=== PATIENT | female | born 1940 | race Two or more races ===

== ENCOUNTER 2018-01-08 10:23 | Inpatient (IN) | payer MEDICARE, OTHER ==
[~2018-01-08] VITALS: Ht 154.9 cm; Wt 59.0 kg
[2018-01-08 10:42] VITALS: BP 143/66
--- NOTE | 2018-01-08 10:42 | Emergency Room Report ---
History of Present Illness General Chief Complaint: Syncope Source: Patient, Family Member, EMS Present Illness HPI Patient presents after syncopal episode. Paramedics found that she was hypotensive also. They gave her a bolus of 250 of normal saline with improvement in her blood pressure. The patient has a history of hypertension and took medications this morning. She also has dementia. The daughter was take her to social security office and was out in the hot sun waiting. The patient passed out's did not hurt herself when she passed out. She then vomited. No coffee grounds. Accu-Chek was normal in the field and an EKG did not show STEMI. Patient denies pain. She has dementia and therefore some of her recent memory is poor. She is being evaluated for possible Parkinson's. Started Sinemet in June and increased. Allergies: Coded Allergies: No Known Allergies (Unverified , 01/08/18) Patient History Limited by: medical condition Past Medical History: see triage record Social History: Denies: smoking, alcohol use, drug use Social History Narrative lives with daughter Reviewed Nursing Documentation: PMH: Agreed; PSxH: Agreed Nursing Documentation-PMH Past Medical History: No History, Except For Hx Hypertension: Yes Hx Diabetes: Yes Hx Neurological Problems: Yes - Dementia, Alzheimer's disease Review of Systems All Other Systems: limited Physical Exam Vital Signs Date Time Temp Pulse Resp B/P (MAP) Pulse Ox O2 Delivery O2 Flow Rate FiO2 01/08/18 10:17 97.5 75 13 143/66 94 Room Air 97.5 Sp02 EP Interpretation: reviewed, normal General Appearance: no apparent distress, thin, Chronically Ill Head: normocephalic Eyes: bilateral eye normal inspection, bilateral eye PERRL ENT: moist mucus membranes, other - tremor involving jaw, plates upper Neck: full range of motion, no meningismus Respiratory: lungs clear, normal breath sounds Cardiovascular #1: regular rate, rhythm Cardiovascular #2: 2+ radial (R) Gastrointestinal: normal inspection, normal bowel sounds, non tender, no mass, non-distended Musculoskeletal: back normal, gait/station normal, normal range of motion Neurologic: alert, motor strength/tone normal - cogwheeling, hyperreflexia, no Babinski, oriented - X1 Psychiatric: other - flat affect Skin: normal inspection, warm/dry Medical Decision Making Diagnostic Impression: Primary Impression: Syncope Qualified Codes: R55 - Syncope and collapse Additional Impressions: Sepsis Qualified Codes: A41.9 - Sepsis, unspecified organism Parkinson's disease UTI (urinary tract infection) Qualified Codes: N39.0 - Urinary tract infection, site not specified ER Course Patient presents with syncope. DDX: AMI, arrhythmia, occult infection, dehydration , sepsis, autonomic instability, medication reaction amongst others. Evaluation with EKG, CXR and labs. Treatment with IV hydration. Consider ABx if labs indicate. CT of head not indicated based on exam and history. EKG without injury. CXR no infiltrates. Labs with normal WBC, elevated lactate and pyuria. Improved BP with hydration. Antibiotics started to cover UTI. Admit tele Dr. Ye. Laboratory Tests Test 01/08/18 10:33 01/08/18 12:14 White Blood Count 11.0 K/UL (4.8-10.8) H Red Blood Count 4.48 M/UL (4.20-5.40) Hemoglobin 13.7 G/DL (12.0-16.0) Hematocrit 41.1 % (37.0-47.0) Mean Corpuscular Volume 92 FL (80-99) Mean Corpuscular Hemoglobin 30.6 PG (27.0-31.0) Mean Corpuscular Hemoglobin Concent 33.3 G/DL (32.0-36.0) Red Cell Distribution Width 12.7 % (11.6-14.8) Platelet Count 160 K/UL (150-450) Mean Platelet Volume 12.5 FL (6.5-10.1) H Neutrophils (%) (Auto) 78.9 % (45.0-75.0) H Lymphocytes (%) (Auto) 12.5 % (20.0-45.0) L Monocytes (%) (Auto) 7.4 % (1.0-10.0) Eosinophils (%) (Auto) 0.8 % (0.0-3.0) Basophils (%) (Auto) 0.5 % (0.0-2.0) Prothrombin Time 10.2 SEC (9.30-11.50) Prothrombin Time INR 1.0 (0.9-1.1) PTT 23 SEC (23-33) Urine Color Pale yellow Urine Appearance Clear Urine pH 8 (4.5-8.0) Urine Specific [place] 1.015 (1.005-1.035) Urine Protein Negative (NEGATIVE) Urine Glucose (UA) Negative (NEGATIVE) Urine Ketones Negative (NEGATIVE) Urine Occult Blood Negative (NEGATIVE) Urine Nitrite Negative (NEGATIVE) Urine Bilirubin Negative (NEGATIVE) Urine Urobilinogen Normal MG/DL (0.0-1.0) Urine Leukocyte Esterase 2+ (NEGATIVE) H Urine RBC 0-2 /HPF (0 - 2) Urine WBC 5-10 /HPF (0 - 2) H Urine Squamous Epithelial Cells Few /LPF (NONE/OCC) Urine Bacteria Few /HPF (NONE) Sodium Level 141 MMOL/L (136-145) Potassium Level 3.8 MMOL/L (3.5-5.1) Chloride Level 104 MMOL/L (98-107) Carbon Dioxide Level 28 MMOL/L (21-32) Anion Gap 9 mmol/L (5-15) Blood Urea Nitrogen 23 mg/dL (7-18) H Creatinine 1.0 MG/DL (0.55-1.30) Estimate Glomerular Filtration Rate mL/min (>60) Glucose Level 109 MG/DL (74-106) H Lactic Acid Level 3.20 mmol/L (0.4-2.0) H 2.10 mmol/L (0.66-2.22) Calcium Level 9.3 MG/DL (8.5-10.1) Magnesium Level 2.2 MG/DL (1.8-2.4) Total Bilirubin 0.7 MG/DL (0.2-1.0) Aspartate Amino Transferase (AST) 22 U/L (15-37) Alanine Aminotransferase (ALT) 13 U/L (12-78) Alkaline Phosphatase 93 U/L (46-116) Total Creatine Kinase 62 U/L (26-308) Troponin I 0.000 ng/mL (0.000-0.056) Pro-B-Type Natriuretic Peptide 219 pg/mL (0-125) H Total Protein 7.1 G/DL (6.4-8.2) Albumin 3.5 G/DL (3.4-5.0) Globulin 3.6 g/dL Albumin/Globulin Ratio 1.0 (1.0-2.7) Thyroid Stimulating Hormone (TSH) 3.711 uiU/mL (0.358-3.740) EKG Diagnostic Results Rate: normal Rhythm: NSR ST Segments: no acute changes Rhythm Strip Diag. Results EP Interpretation: yes Rhythm: NSR, no PVC's, no ectopy Chest X-Ray Diagnostic Results Chest X-Ray Diagnostic Results : Chest X-Ray Ordered: Yes # of Views/Limited/Complete: 1 View Indication: Other EP Interpretation: Yes Interpretation: no consolidation, no effusion, no pneumothorax Impression: No acute disease Electronically Signed by: Electronically signed by Adiel Soliz MD Last Vital Signs Date Time Temp Pulse Resp B/P (MAP) Pulse Ox O2 Delivery O2 Flow Rate FiO2 01/08/18 21:00 Room Air 01/08/18 20:00 72 01/08/18 20:00 98.0 22 122/72 (89) 97 98.0 01/08/18 14:38 2.0 Status: improved Disposition: ADMITTED INPATIENT Condition: Serious Adiel Soliz M.D. Jan 08, 2018 10:42
[2018-01-08 10:54] LABS: BASOPHILS % (AUTO) 0.5 % (0.0-2.0); EOSINOPHILS % (AUTO) 0.8 % (0.0-3.0); HEMATOCRIT 41.1 % (37.0-47.0); HEMOGLOBIN 13.7 G/DL (12.0-16.0); LYMPHOCYTES % (AUTO) 12.5 % (20.0-45.0); MEAN CORPUSCULAR VOLUME 92 FL (80-99); MONOCYTES % (AUTO) 7.4 % (1.0-10.0); NEUTROPHILS % (AUTO) 78.9 % (45.0-75.0); PLATELET COUNT 160 K/UL (150-450); RED BLOOD COUNT 4.48 M/UL (4.20-5.40); RED CELL DISTRIBUTION WIDTH 12.7 % (11.6-14.8)
[2018-01-08 11:01] LABS: ANION GAP 9 mmol/L (5-15); BLOOD UREA NITROGEN 23 mg/dL (7-18); CALCIUM 9.3 MG/DL (8.5-10.1); CARBON DIOXIDE 28 MMOL/L (21-32); CHLORIDE 104 MMOL/L (98-107); POTASSIUM 3.8 MMOL/L (3.5-5.1); SODIUM 141 MMOL/L (136-145)
[2018-01-08 11:05] LABS: APPEARANCE,URINE CLEAR; BILIRUBIN, URINE NEGATIVE (NEGATIVE); COLOR,URINE PALE YELLOW; GLUCOSE, URINE (UA) NEGATIVE (NEGATIVE); KETONES,URINE NEGATIVE (NEGATIVE); LEUKOCYTE ESTERASE ,URINE 2+ (NEGATIVE); NITRITE,URINE NEGATIVE (NEGATIVE); PH,URINE 8 (4.5-8.0); PROTEIN,URINE NEGATIVE (NEGATIVE); UROBILINOGEN,URINE NORMAL MG/DL (0.0-1.0)
[2018-01-08 11:17] LABS: ALANINE AMINOTRANSFERASE 13 U/L (12-78); ALBUMIN 3.5 G/DL (3.4-5.0); ALKALINE PHOSPHATASE 93 U/L (46-116); ASPARTATE AMINO TRANSFERASE 22 U/L (15-37); BILIRUBIN,TOTAL 0.7 MG/DL (0.2-1.0); CREATINE KINASE 62 U/L (26-308)
--- NOTE | 2018-01-08 11:18 | Diagnostic Imaging Report ---
Indication: Shortness of breath. Technique: One view of the chest Comparison: none Findings: Lungs and pleural spaces are clear. Heart size is normal Impression: No acute process
[2018-01-08] MEDS ORDERED: HYDROCHLOROTHIA25 MG ORAL (11:29)
[2018-01-08] MEDS ORDERED: ATORVASTATIN CA40 MG ORAL (11:29)
[2018-01-08] MEDS ORDERED: SINEMET 25-1001 EAC1 ORAL (11:29)
[2018-01-08] MEDS ORDERED: JANUVIA25 MG ORAL (11:29)
[2018-01-08] MEDS ORDERED: VITAMIN D400 INTLU ORAL (11:29)
[2018-01-08] MEDS ORDERED: ASPIR 8181 MG ORAL (11:29)
[2018-01-08] MEDS ORDERED: DONEPEZIL HCL10 M2 ORAL (11:30)
[2018-01-08 11:56] VITALS: BP 131/60
[2018-01-08] MEDS ORDERED: Cefepime HCl 1 GM in D5W 55 ML IVPB ONE (12:00)
[2018-01-08] MEDS ORDERED: Nitroglycerin Subl 0.4mg tab SL PRN (13:00)
[2018-01-08] MEDS ORDERED: Miralax 17gm pkt ORAL PRN (13:00)
[2018-01-08] MEDS ORDERED: LORazepam Inj 2mg/ml 1ml IV PRN (13:00)
[2018-01-08] MEDS ORDERED: Albuterol/Ipratropium 3ml neb HHN PRN (13:00)
[2018-01-08] MEDS ORDERED: Morphine Sulfate 2mg/ml Inj IVP PRN (13:00)
[2018-01-08] MEDS ORDERED: Mylanta II UD 30ml ORAL PRN (13:00)
[2018-01-08 13:23] VITALS: BP 128/74
--- NOTE | 2018-01-08 14:16 | Consultation ---
History of Present Illness General Date patient seen: Jan 08, 2018 Chief Complaint: Syncope Present Illness HPI 77 y/o F with hx of HTN, Dementia, possible Parkinson's presents to ED on 01/08 with a syncopal episode. EMS found patient to be hypotensive which improved with 250 cc saline bolus. Daughter referred patient was waiting outside in the sun for a social security appointment. After passing out she vomited. Accucheck in the field normal, EKG with no STEMI. Afebrile mild leukocytosis Denies abd pain, dysuria, urinary frequency, urgency, f/c. Allergies: Coded Allergies: No Known Allergies (Unverified , 01/08/18) Medication History Scheduled Aspirin* (Aspir 81*), 81 MG ORAL DAILY, (Reported) Atorvastatin Calcium* (Atorvastatin Calcium*), 80 MG ORAL BEDTIME, (Reported) Carbidopa/Levodopa 25-100 Mg* (Sinemet 25-100 Mg Tablet*), 1 TAB ORAL THREE TIMES A DAY, (Reported) Donepezil Hcl* (Donepezil Hcl*), 10 MG ORAL DAILY, (Reported) Hydrochlorothiazide* (Hydrochlorothiazide*), 25 MG ORAL DAILY, (Reported) Sitagliptin* (Januvia*), 100 MG ORAL DAILY, (Reported) Vitamin D (Vitamin D3), 2,000 UNITS ORAL DAILY, (Reported) Patient History Healthcare decision maker Resuscitation status Advanced Directive on File Patient History Narrative Pmhx: as above Shx: Denies: smoking, alcohol use, drug use Fhx: non contributory Review of Systems All Other Systems: negative except mentioned in HPI Physical Exam Physical Exam Narrative General Appearance: thin, Chronically Ill Eyes: bilateral eye normal inspection, bilateral eye PERRL ENT: moist mucus membranes, other - tremor involving jaw, plates upper Neck: full range of motion, no meningismus Neurologic: alert, no Babinski, oriented - X1 Psychiatric: other - flat affect Last 24 Hour Vital Signs Date Time Temp Pulse Resp B/P (MAP) Pulse Ox O2 Delivery O2 Flow Rate FiO2 01/08/18 14:03 97.8 84 16 128/74 100 Room Air 97.8 01/08/18 13:23 97.8 84 16 128/74 100 Room Air 97.8 01/08/18 11:56 97.8 74 14 131/60 100 Room Air 97.8 01/08/18 10:42 97.5 73 13 143/66 94 Room Air 97.5 01/08/18 10:17 97.5 75 13 143/66 94 Room Air 97.5 Laboratory Tests Test 01/08/18 10:33 01/08/18 12:14 White Blood Count 11.0 K/UL (4.8-10.8) H Red Blood Count 4.48 M/UL (4.20-5.40) Hemoglobin 13.7 G/DL (12.0-16.0) Hematocrit 41.1 % (37.0-47.0) Mean Corpuscular Volume 92 FL (80-99) Mean Corpuscular Hemoglobin 30.6 PG (27.0-31.0) Mean Corpuscular Hemoglobin Concent 33.3 G/DL (32.0-36.0) Red Cell Distribution Width 12.7 % (11.6-14.8) Platelet Count 160 K/UL (150-450) Mean Platelet Volume 12.5 FL (6.5-10.1) H Neutrophils (%) (Auto) 78.9 % (45.0-75.0) H Lymphocytes (%) (Auto) 12.5 % (20.0-45.0) L Monocytes (%) (Auto) 7.4 % (1.0-10.0) Eosinophils (%) (Auto) 0.8 % (0.0-3.0) Basophils (%) (Auto) 0.5 % (0.0-2.0) Prothrombin Time 10.2 SEC (9.30-11.50) Prothromb Time International Ratio 1.0 (0.9-1.1) Activated Partial Thromboplast Time 23 SEC (23-33) Urine Color Pale yellow Urine Appearance Clear Urine pH 8 (4.5-8.0) Urine Specific [place] 1.015 (1.005-1.035) Urine Protein Negative (NEGATIVE) Urine Glucose (UA) Negative (NEGATIVE) Urine Ketones Negative (NEGATIVE) Urine Occult Blood Negative (NEGATIVE) Urine Nitrite Negative (NEGATIVE) Urine Bilirubin Negative (NEGATIVE) Urine Urobilinogen Normal MG/DL (0.0-1.0) Urine Leukocyte Esterase 2+ (NEGATIVE) H Urine RBC 0-2 /HPF (0 - 2) Urine WBC 5-10 /HPF (0 - 2) H Urine Squamous Epithelial Cells Few /LPF (NONE/OCC) Urine Bacteria Few /HPF (NONE) Sodium Level 141 MMOL/L (136-145) Potassium Level 3.8 MMOL/L (3.5-5.1) Chloride Level 104 MMOL/L (98-107) Carbon Dioxide Level 28 MMOL/L (21-32) Anion Gap 9 mmol/L (5-15) Blood Urea Nitrogen 23 mg/dL (7-18) H Creatinine 1.0 MG/DL (0.55-1.30) Estimat Glomerular Filtration Rate mL/min (>60) Glucose Level 109 MG/DL (74-106) H Lactic Acid Level 3.20 mmol/L (0.4-2.0) H 2.10 mmol/L (0.66-2.22) Calcium Level 9.3 MG/DL (8.5-10.1) Magnesium Level 2.2 MG/DL (1.8-2.4) Total Bilirubin 0.7 MG/DL (0.2-1.0) Aspartate Amino Transf (AST/SGOT) 22 U/L (15-37) Alanine Aminotransferase (ALT/SGPT) 13 U/L (12-78) Alkaline Phosphatase 93 U/L (46-116) Total Creatine Kinase 62 U/L (26-308) Troponin I 0.000 ng/mL (0.000-0.056) Pro-B-Type Natriuretic Peptide 219 pg/mL (0-125) H Total Protein 7.1 G/DL (6.4-8.2) Albumin 3.5 G/DL (3.4-5.0) Globulin 3.6 g/dL Albumin/Globulin Ratio 1.0 (1.0-2.7) Thyroid Stimulating Hormone (TSH) 3.711 uiU/mL (0.358-3.740) Microbiology Date/Time Source Procedure Growth Status 01/08/18 11:17 Rectum Received Height (Feet): 5 Height (Inches): 1.00 Weight (Pounds): 130 Medications Current Medications Medications (Trade) Dose Ordered Sig/Jose Alberto Route PRN Reason Start Time Stop Time Status Last Admin Dose Admin Acetaminophen (Tylenol) 650 mg Q4H PRN ORAL fever 01/08/18 13:00 02/07/18 12:59 Al Hydroxide/Mg Hydroxide (Mylanta II) 30 ml Q6H PRN ORAL dyspepsia 01/08/18 13:00 02/07/18 12:59 Albuterol/ Ipratropium (Albuterol/ Ipratropium) 3 ml Q4H PRN HHN Shortness of Breath 01/08/18 13:00 01/13/18 12:59 Atorvastatin Calcium (Lipitor) 80 mg BEDTIME ORAL 01/08/18 21:00 02/07/18 20:59 Carbidopa/Levodopa (Sinemet 25/100) 1 tab THREE TIMES A DAY ORAL 01/08/18 13:00 02/07/18 12:59 Clonidine HCl (Catapres Tab) 0.1 mg Q4H PRN ORAL For High Blood Pressure 01/08/18 13:00 02/07/18 12:59 Dextrose (Dextrose 50%) 25 ml STAT PRN IV Hypoglycemia 01/08/18 13:00 02/07/18 12:59 Dextrose (Dextrose 50%) 50 ml STAT PRN IV Hypoglycemia 01/08/18 13:00 02/07/18 12:59 Donepezil HCl (Aricept) 10 mg DAILY ORAL 01/09/18 09:00 02/08/18 08:59 Heparin Sodium (Porcine) (Heparin 5000 units/ml) 5,000 units EVERY 12 HOURS SUBQ 01/08/18 21:00 02/07/18 20:59 Insulin Aspart (NovoLOG) BEFORE MEALS AND HS SUBQ 01/08/18 16:30 02/07/18 16:29 Levofloxacin 50 ml @ 50 mls/hr Q24HRS IVPB 01/09/18 13:00 01/16/18 12:59 Levofloxacin 100 ml @ 100 mls/hr ONCE ONCE IVPB 01/08/18 13:00 01/08/18 13:59 UNV Lorazepam (Ativan 2mg/ml 1ml) 0.5 mg Q4H PRN IV For Anxiety 01/08/18 13:00 01/15/18 12:59 Morphine Sulfate (Morphine Sulfate) 1 mg Q4H PRN IVP For Pain 7-10 01/08/18 13:00 01/15/18 12:59 Nitroglycerin (Ntg) 0.4 mg Q5M X 3 DOSES PRN SL Prn Chest Pain 01/08/18 13:00 02/07/18 12:59 Ondansetron HCl (Zofran) 4 mg Q6H PRN IVP Nausea & Vomiting 01/08/18 13:00 02/07/18 12:59 Polyethylene Glycol (Miralax) 17 gm HSPRN PRN ORAL Constipation 01/08/18 13:00 02/07/18 12:59 Sitagliptin Phosphate (Januvia) 50 mg DAILY ORAL 01/09/18 09:00 02/08/18 08:59 Sodium Chloride 1,000 ml @ 300 mls/hr Q3H20M IV 01/08/18 10:45 02/07/18 10:44 01/08/18 10:50 Temazepam (Restoril) 15 mg HSPRN PRN ORAL Insomnia 01/08/18 21:00 01/15/18 20:59 Assessment/Plan Assessment/Plan Abx: Levaquin 01/08- Cefepime x1 01/08 Assessment: Syncopal episode- likely orthostatic hypotension from dehydration (sun exposure ) + antihypertensive and parkinsonian meds -CXR: no acute process Afebrile Mild leukocytosis, likely reactive and due to dehydration Mild pyuria- nO UTI symptoms u/a wbc 5-10, nit neg, leuk +2; ucx p HTN Dementia Probable Parkinson's Plan: -D/c Levaquin and monitor off abx -ok to discharge tomorrow from ID stand point if stable. -f/u cx -Monitor CBC/CMP, temperatures Thank you for this consultation. Will continue to follow along with you. Discussed with RN and daughter at bedside. Elly Willard M.D. Jan 08, 2018 14:16
[2018-01-08] MEDS: Levodopa/Carbidopa 25/100 tab ORAL SCH ×2 (15:20→17:30)
[2018-01-08 16:00] VITALS: BP 139/72
[2018-01-08] MEDS: NovoLOG Insulin Flexpen SUBQ SCH ×2 (17:30→21:00)
[2018-01-08 20:00] VITALS: BP 122/72
[2018-01-08] MEDS: Atorvastatin 80mg tab ORAL SCH (21:39)
[2018-01-08] MEDS: Heparin 5000 units/ml inj SUBQ SCH (21:41)
--- NOTE | 2018-01-08 21:45 | History and Physical Report ---
DATE OF ADMISSION: 01/08/2018 TIME: 4 p.m. ADMITTING PHYSICIAN: Riky Ye D.O. CONSULTANTS: 1. Mona Cook M.D. 2. Lowell Hope M.D. 3. Chano Encinas M.D. 4. Irvin Trent M.D. CHIEF COMPLAINT: Syncope, shortness of breath, and sepsis. BRIEF HISTORY: This is an 87-year-old female, who lives at home, lying in social security after a while became very dizzy and had a syncopal episode. She did not become incontinent . The patient was slightly short of breath, but no chest pain at the time. The patient was brought to [facility] and diagnosed with the above. Currently, calm in bed. No complaints otherwise being admitted. At this time, in general, lethargic in bed, not talking much. PAST MEDICAL HISTORY: Diabetes. PAST SURGICAL HISTORY: Gallbladder. MEDICATIONS: Include levofloxacin, Aricept, Januvia, Lipitor, heparin, Restoril, NovoLog, Sinemet, Tylenol, MiraLAX, Zofran, and nitroglycerin. ALLERGIES: Denies. SOCIAL HISTORY: No smoking. No alcohol. No intravenous drug abuse. FAMILY HISTORY: Noncontributory. REVIEW OF SYSTEMS: Unavailable. PHYSICAL EXAMINATION: GENERAL: Calm in bed, oriented x2, in no acute distress. VITAL SIGNS: Temperature 97, pulse 84, respirations 16, and blood pressure 120/74. CARDIOVASCULAR: No murmur. LUNGS: Distant and clear. ABDOMEN: Bowel sounds positive. Soft, nontender, and nondistended. EXTREMITIES: Show no cyanosis, clubbing, or edema. NEUROLOGIC: The patient moves all extremities. Slightly weak. LABORATORY AND DIAGNOSTIC DATA: White count 11, otherwise CBC is normal. BMP shows BUN 23 and glucose 109. BNP is 219. Troponin 0.00. Otherwise, BMP is normal. INR is 1.0. PTT is 22. Urinalysis show 2+ leukocyte esterase. Otherwise, normal. ASSESSMENT: 1. Syncope. 2. Shortness of breath. 3. Urinary tract infection. 4. Sepsis. 5. Diabetes. PLAN: 1. Antibiotics per Infectious Disease. 2. Blood sugar control. 3. Dietary followup. 4. IV fluids. 5. Troponin q.8 h. x3. 6. Cardiology and Neurology evaluation. 7. OT, PT, and Dietary evaluation. 8. CBC and BMP in the morning. Riky Ye D.O. DR: SUMIT JOB#: [id number] CC: IRINA
[2018-01-09] VITALS: BP 126/70
[2018-01-09 04:00] VITALS: BP 127/65
[2018-01-09] MEDS: NovoLOG Insulin Flexpen SUBQ SCH ×4 (06:30→20:47)
[2018-01-09 07:36] LABS: BASOPHILS % (AUTO) 0.5 % (0.0-2.0); EOSINOPHILS % (AUTO) 2.9 % (0.0-3.0); HEMATOCRIT 33.9 % (37.0-47.0); HEMOGLOBIN 11.8 G/DL (12.0-16.0); LYMPHOCYTES % (AUTO) 26.4 % (20.0-45.0); MEAN CORPUSCULAR VOLUME 90 FL (80-99); MONOCYTES % (AUTO) 6.2 % (1.0-10.0); PLATELET COUNT 144 K/UL (150-450); RED BLOOD COUNT 3.78 M/UL (4.20-5.40); RED CELL DISTRIBUTION WIDTH 12.6 % (11.6-14.8)
[2018-01-09 08:00] VITALS: BP 133/56
[2018-01-09 08:12] LABS: ALANINE AMINOTRANSFERASE 30 U/L (12-78); ALBUMIN 2.9 G/DL (3.4-5.0); ALBUMIN/GLOBULIN RATIO 0.8 (1.0-2.7); ALKALINE PHOSPHATASE 79 U/L (46-116); ANION GAP 7 mmol/L (5-15); ASPARTATE AMINO TRANSFERASE 22 U/L (15-37); BILIRUBIN,TOTAL 0.8 MG/DL (0.2-1.0); BLOOD UREA NITROGEN 15 mg/dL (7-18); CALCIUM 8.5 MG/DL (8.5-10.1); CARBON DIOXIDE 26 MMOL/L (21-32); CHLORIDE 109 MMOL/L (98-107); CHOLESTEROL 112 MG/DL (< 200); CREATININE 0.8 MG/DL (0.55-1.30); HDL CHOLESTEROL 57 MG/DL (40-60); POTASSIUM 3.2 MMOL/L (3.5-5.1); SODIUM 142 MMOL/L (136-145); TRIGLYCERIDES 84 MG/DL (30-150)
[2018-01-09] MEDS: Donepezil 10mg tab ORAL SCH (09:15)
[2018-01-09] MEDS: sitaGLIPtin 50mg tab ORAL SCH (09:15)
[2018-01-09] MEDS: Levodopa/Carbidopa 25/100 tab ORAL SCH (09:15)
[2018-01-09] MEDS: Heparin 5000 units/ml inj SUBQ SCH ×2 (09:16→21:00)
--- NOTE | 2018-01-09 10:38 | Infectious Diseases Prog Note ---
Assessment/Plan Assessment/Plan Abx: Levaquin 01/08- Cefepime x1 01/08 Assessment: Syncopal episode- likely orthostatic hypotension from dehydration (sun exposure ) + antihypertensive and parkinsonian meds -CXR: no acute process Afebrile Mild leukocytosis, likely reactive and due to dehydration- resolved Mild pyuria- nO UTI symptoms u/a wbc 5-10, nit neg, leuk +2; ucx p Mild PRASANTH/Azotemia- improving HTN Dementia Probable Parkinson's Plan: -Continue to monitor off abx; ok to discharge from ID stand point -01/08 LEvaquin x1, Cefepime x1 -f/u cx -Monitor CBC/CMP, temperatures Thank you for this consultation. Will continue to follow along with you. Discussed with RN and daughter at bedside. Subjective Allergies: Coded Allergies: No Known Allergies (Unverified , 01/08/18) Subjective afebrile leukcoytosis resolved back to baseline no complains Objective Vital Signs Last 24 Hour Vital Signs Date Time Temp Pulse Resp B/P (MAP) Pulse Ox O2 Delivery O2 Flow Rate FiO2 01/09/18 09:00 Room Air 01/09/18 08:00 98.2 65 18 133/56 (81) 97 98.2 01/09/18 08:00 62 01/09/18 07:53 70 20 Room Air 21 01/09/18 04:00 72 01/09/18 04:00 98.2 64 20 127/65 (85) 98 98.2 01/09/18 00:00 75 01/09/18 00:00 98.0 76 22 126/70 (88) 96 98.0 01/08/18 21:00 Room Air 01/08/18 20:00 72 01/08/18 20:00 98.0 87 22 122/72 (89) 97 98.0 01/08/18 16:00 89 01/08/18 16:00 98.0 93 20 139/72 (94) 100 98.0 01/08/18 14:38 Nasal Cannula 2.0 01/08/18 14:03 97.8 84 16 128/74 100 Room Air 97.8 01/08/18 13:23 97.8 84 16 128/74 100 Room Air 97.8 01/08/18 11:56 97.8 74 14 131/60 100 Room Air 97.8 01/08/18 10:42 97.5 73 13 143/66 94 Room Air 97.5 Height (Feet): 5 Height (Inches): 1.00 Weight (Pounds): 130 Objective General Appearance: thin, Chronically Ill Eyes: bilateral eye normal inspection, bilateral eye PERRL ENT: moist mucus membranes, other - tremor involving jaw, plates upper Neck: full range of motion, no meningismus Neurologic: alert, no Babinski, oriented - X1 Psychiatric: other - flat affect Microbiology Date/Time Source Procedure Growth Status 01/08/18 11:17 Rectum Received Laboratory Tests Test 01/08/18 12:14 01/09/18 07:25 Lactic Acid Level 2.10 mmol/L (0.66-2.22) White Blood Count 7.0 K/UL (4.8-10.8) Red Blood Count 3.78 M/UL (4.20-5.40) L Hemoglobin 11.8 G/DL (12.0-16.0) L Hematocrit 33.9 % (37.0-47.0) L Mean Corpuscular Volume 90 FL (80-99) Mean Corpuscular Hemoglobin 31.2 PG (27.0-31.0) H Mean Corpuscular Hemoglobin Concent 34.7 G/DL (32.0-36.0) Red Cell Distribution Width 12.6 % (11.6-14.8) Platelet Count 144 K/UL (150-450) L Mean Platelet Volume 10.9 FL (6.5-10.1) H Neutrophils (%) (Auto) 64.0 % (45.0-75.0) Lymphocytes (%) (Auto) 26.4 % (20.0-45.0) Monocytes (%) (Auto) 6.2 % (1.0-10.0) Eosinophils (%) (Auto) 2.9 % (0.0-3.0) Basophils (%) (Auto) 0.5 % (0.0-2.0) Prothrombin Time 10.9 SEC (9.30-11.50) Prothromb Time International Ratio 1.0 (0.9-1.1) Activated Partial Thromboplast Time 29 SEC (23-33) Sodium Level 142 MMOL/L (136-145) Potassium Level 3.2 MMOL/L (3.5-5.1) L Chloride Level 109 MMOL/L (98-107) H Carbon Dioxide Level 26 MMOL/L (21-32) Anion Gap 7 mmol/L (5-15) Blood Urea Nitrogen 15 mg/dL (7-18) Creatinine 0.8 MG/DL (0.55-1.30) Estimat Glomerular Filtration Rate mL/min (>60) Glucose Level 99 MG/DL (74-106) Calcium Level 8.5 MG/DL (8.5-10.1) Total Bilirubin 0.8 MG/DL (0.2-1.0) Aspartate Amino Transf (AST/SGOT) 22 U/L (15-37) Alanine Aminotransferase (ALT/SGPT) 30 U/L (12-78) Alkaline Phosphatase 79 U/L (46-116) Total Protein 6.5 G/DL (6.4-8.2) Albumin 2.9 G/DL (3.4-5.0) L Globulin 3.6 g/dL Albumin/Globulin Ratio 0.8 (1.0-2.7) L Triglycerides Level 84 MG/DL (30-150) Cholesterol Level 112 MG/DL (< 200) LDL Cholesterol 57 mg/dL (<100) HDL Cholesterol 57 MG/DL (40-60) Cholesterol/HDL Ratio 2.0 (3.3-4.4) L Thyroid Stimulating Hormone (TSH) 1.887 uiU/mL (0.358-3.740) Current Medications Medications (Trade) Dose Ordered Sig/Jose Alberto Route PRN Reason Start Time Stop Time Status Last Admin Dose Admin Acetaminophen (Tylenol) 650 mg Q4H PRN ORAL fever 01/08/18 13:00 02/07/18 12:59 Al Hydroxide/Mg Hydroxide (Mylanta II) 30 ml Q6H PRN ORAL dyspepsia 01/08/18 13:00 02/07/18 12:59 Albuterol/ Ipratropium (Albuterol/ Ipratropium) 3 ml Q4H PRN HHN Shortness of Breath 01/08/18 13:00 01/13/18 12:59 Atorvastatin Calcium (Lipitor) 80 mg BEDTIME ORAL 01/08/18 21:00 02/07/18 20:59 01/08/18 21:39 Carbidopa/Levodopa (Sinemet 25/100) 1 tab THREE TIMES A DAY ORAL 01/08/18 13:00 02/07/18 12:59 01/09/18 09:15 Clonidine HCl (Catapres Tab) 0.1 mg Q4H PRN ORAL For High Blood Pressure 01/08/18 13:00 02/07/18 12:59 Dextrose (Dextrose 50%) 25 ml STAT PRN IV Hypoglycemia 01/08/18 13:00 02/07/18 12:59 Dextrose (Dextrose 50%) 50 ml STAT PRN IV Hypoglycemia 01/08/18 13:00 02/07/18 12:59 Donepezil HCl (Aricept) 10 mg DAILY ORAL 01/09/18 09:00 02/08/18 08:59 01/09/18 09:15 Heparin Sodium (Porcine) (Heparin 5000 units/ml) 5,000 units EVERY 12 HOURS SUBQ 01/08/18 21:00 02/07/18 20:59 01/09/18 09:16 Insulin Aspart (NovoLOG) BEFORE MEALS AND HS SUBQ 01/08/18 16:30 02/07/18 16:29 01/08/18 17:30 Lorazepam (Ativan 2mg/ml 1ml) 0.5 mg Q4H PRN IV For Anxiety 01/08/18 13:00 01/15/18 12:59 Morphine Sulfate (Morphine Sulfate) 1 mg Q4H PRN IVP For Pain 7-01/08/18 13:00 01/15/18 12:59 Nitroglycerin (Ntg) 0.4 mg Q5M X 3 DOSES PRN SL Prn Chest Pain 01/08/18 13:00 02/07/18 12:59 Ondansetron HCl (Zofran) 4 mg Q6H PRN IVP Nausea & Vomiting 01/08/18 13:00 02/07/18 12:59 01/09/18 08:25 Polyethylene Glycol (Miralax) 17 gm HSPRN PRN ORAL Constipation 01/08/18 13:00 02/07/18 12:59 01/08/18 22:38 Potassium Chloride (K-Dur) 40 meq ONCE ONCE ORAL 01/09/18 10:30 01/09/18 10:31 UNV Sitagliptin Phosphate (Januvia) 50 mg DAILY ORAL 01/09/18 09:00 02/08/18 08:59 01/09/18 09:15 Temazepam (Restoril) 15 mg HSPRN PRN ORAL Insomnia 01/08/18 21:00 01/15/18 20:59 Elly Willard M.D. Jan 09, 2018 10:38
--- NOTE | 2018-01-09 10:41 | Consultation ---
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 Her dose of Sinemet has been recently changed from 1 to 2 tablets tid. Yesterday she was standing outside the office for an appointment when she suddenly felt dizzy and passed out for a few seconds. She regained consciousness rapidly and was back to her normal self. When the paramedics got to her she was hypotensive. She was given a NS bolus and felt well soon. Of note is that she did have a similar fainting episode 7 months ago. ON EXAM: Oriented to self and year only. M- 3/3-0, 2/3- 1 & 3 second try. Trump and Obama only Math/VSF impaired. Speech mildly dysarthric. CN: NLP in left eye. G 5/5 Decreased position in toes. Globally diminished DTRs Minimally wide based stance & gait. OBL Dyskinesia: G 3/4 Limb and trunk dyskinesia; G 2/4 Limb and trunk dystonia: G 2/4 Tremor, rigidity, bradykinesia, hypomimia, hypophonia, PS, PG: G 0/4 IMPRESSION: 1. Syncopal episode due to possible dehydration - in addition the UTI and exposure to large amounts of dopaminergic agents could also have contributed. 2. No parkinsonian signs but significant dystonic and dyskinetic movements. 3. Underlying dementia. REC: 1. Keep well hydrated. 2. Rx of UTI. 3. Will stop Sinemet and see if there is an underlying PD, and if need be start on lower dose. 4. Neuropathy w/u. 5. Observe. Shalonda Trent M.D., M.S.P.Sheila. SHALONDA TRENT Jan 09, 2018 10:41
--- NOTE | 2018-01-09 11:08 | Consultation ---
History of Present Illness General Date patient seen: Jan 09, 2018 Chief Complaint: Syncope Present Illness HPI 77 year old lady with hx of HTN, DM ? Parkinson, Dementia, presented to ER after a syncopal episode. Paramedics found that she was hypotensive also. They gave her a bolus of 250 of normal saline with improvement in her blood pressure. She was out in the hot sun waiting when she passed out. She did not hurt herself when she passed out. She then vomited. No coffee grounds. Pt is admitted to telemetry for further management. Allergies: Coded Allergies: No Known Allergies (Unverified , 01/08/18) Medication History Scheduled Aspirin* (Aspir 81*), 81 MG ORAL DAILY, (Reported) Atorvastatin Calcium* (Atorvastatin Calcium*), 80 MG ORAL BEDTIME, (Reported) Carbidopa/Levodopa 25-100 Mg* (Sinemet 25-100 Mg Tablet*), 1 TAB ORAL THREE TIMES A DAY, (Reported) Donepezil Hcl* (Donepezil Hcl*), 10 MG ORAL DAILY, (Reported) Hydrochlorothiazide* (Hydrochlorothiazide*), 25 MG ORAL DAILY, (Reported) Sitagliptin* (Januvia*), 100 MG ORAL DAILY, (Reported) Vitamin D (Vitamin D3), 2,000 UNITS ORAL DAILY, (Reported) Patient History Healthcare decision maker Resuscitation status Full Code Advanced Directive on File Past Medical/Surgical History Past Medical/Surgical History: (1) Parkinson's disease Review of Systems All Other Systems: negative except mentioned in HPI Physical Exam General Appearance: WD/WN Lines, tubes and drains: peripheral HEENT: normocephalic, atraumatic Neck: non-tender, normal alignment Respiratory/Chest: chest wall non-tender, lungs clear Breasts: no masses Cardiovascular/Chest: normal peripheral pulses Abdomen: normal bowel sounds Genitourinary/Rectal: normal genital exam Extremities: normal range of motion Skin Exam: normal pigmentation 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 Last 24 Hour Vital Signs Date Time Temp Pulse Resp B/P (MAP) Pulse Ox O2 Delivery O2 Flow Rate FiO2 01/09/18 09:00 Room Air 01/09/18 08:00 98.2 65 18 133/56 (81) 97 98.2 01/09/18 08:00 62 01/09/18 07:53 70 20 Room Air 21 01/09/18 04:00 72 01/09/18 04:00 98.2 64 20 127/65 (85) 98 98.2 01/09/18 00:00 75 01/09/18 00:00 98.0 76 22 126/70 (88) 96 98.0 01/08/18 21:00 Room Air 01/08/18 20:00 72 01/08/18 20:00 98.0 87 22 122/72 (89) 97 98.0 01/08/18 16:00 89 01/08/18 16:00 98.0 93 20 139/72 (94) 100 98.0 01/08/18 14:38 Nasal Cannula 2.0 01/08/18 14:03 97.8 84 16 128/74 100 Room Air 97.8 01/08/18 13:23 97.8 84 16 128/74 100 Room Air 97.8 01/08/18 11:56 97.8 74 14 131/60 100 Room Air 97.8 Intake and Output 01/08/18 01/09/18 19:00 07:00 Intake Total 360 ml Balance 360 ml Intake Oral 360 ml # Voids 3 2 Laboratory Tests Test 01/08/18 12:14 01/09/18 07:25 Lactic Acid Level 2.10 mmol/L (0.66-2.22) White Blood Count 7.0 K/UL (4.8-10.8) Red Blood Count 3.78 M/UL (4.20-5.40) L Hemoglobin 11.8 G/DL (12.0-16.0) L Hematocrit 33.9 % (37.0-47.0) L Mean Corpuscular Volume 90 FL (80-99) Mean Corpuscular Hemoglobin 31.2 PG (27.0-31.0) H Mean Corpuscular Hemoglobin Concent 34.7 G/DL (32.0-36.0) Red Cell Distribution Width 12.6 % (11.6-14.8) Platelet Count 144 K/UL (150-450) L Mean Platelet Volume 10.9 FL (6.5-10.1) H Neutrophils (%) (Auto) 64.0 % (45.0-75.0) Lymphocytes (%) (Auto) 26.4 % (20.0-45.0) Monocytes (%) (Auto) 6.2 % (1.0-10.0) Eosinophils (%) (Auto) 2.9 % (0.0-3.0) Basophils (%) (Auto) 0.5 % (0.0-2.0) Erythrocyte Sedimentation Rate Pending Prothrombin Time 10.9 SEC (9.30-11.50) Prothromb Time International Ratio 1.0 (0.9-1.1) Activated Partial Thromboplast Time 29 SEC (23-33) Sodium Level 142 MMOL/L (136-145) Potassium Level 3.2 MMOL/L (3.5-5.1) L Chloride Level 109 MMOL/L (98-107) H Carbon Dioxide Level 26 MMOL/L (21-32) Anion Gap 7 mmol/L (5-15) Blood Urea Nitrogen 15 mg/dL (7-18) Creatinine 0.8 MG/DL (0.55-1.30) Estimat Glomerular Filtration Rate mL/min (>60) Glucose Level 99 MG/DL (74-106) Hemoglobin A1c Pending Calcium Level 8.5 MG/DL (8.5-10.1) Total Bilirubin 0.8 MG/DL (0.2-1.0) Aspartate Amino Transf (AST/SGOT) 22 U/L (15-37) Alanine Aminotransferase (ALT/SGPT) 30 U/L (12-78) Alkaline Phosphatase 79 U/L (46-116) Total Protein 6.5 G/DL (6.4-8.2) Albumin 2.9 G/DL (3.4-5.0) L Globulin 3.6 g/dL Albumin/Globulin Ratio 0.8 (1.0-2.7) L Triglycerides Level 84 MG/DL (30-150) Cholesterol Level 112 MG/DL (< 200) LDL Cholesterol 57 mg/dL (<100) HDL Cholesterol 57 MG/DL (40-60) Cholesterol/HDL Ratio 2.0 (3.3-4.4) L Vitamin B12 Level Pending Folate Pending Thyroid Stimulating Hormone (TSH) 1.887 uiU/mL (0.358-3.740) Microbiology Date/Time Source Procedure Growth Status 01/08/18 11:17 Rectum Received Height (Feet): 5 Height (Inches): 1.00 Weight (Pounds): 130 Medications Current Medications Medications (Trade) Dose Ordered Sig/Jose Alberto Route PRN Reason Start Time Stop Time Status Last Admin Dose Admin Acetaminophen (Tylenol) 650 mg Q4H PRN ORAL fever 01/08/18 13:00 02/07/18 12:59 Al Hydroxide/Mg Hydroxide (Mylanta II) 30 ml Q6H PRN ORAL dyspepsia 01/08/18 13:00 02/07/18 12:59 Albuterol/ Ipratropium (Albuterol/ Ipratropium) 3 ml Q4H PRN HHN Shortness of Breath 01/08/18 13:00 01/13/18 12:59 Atorvastatin Calcium (Lipitor) 80 mg BEDTIME ORAL 01/08/18 21:00 02/07/18 20:59 01/08/18 21:39 Clonidine HCl (Catapres Tab) 0.1 mg Q4H PRN ORAL For High Blood Pressure 01/08/18 13:00 02/07/18 12:59 Dextrose (Dextrose 50%) 25 ml STAT PRN IV Hypoglycemia 01/08/18 13:00 02/07/18 12:59 Dextrose (Dextrose 50%) 50 ml STAT PRN IV Hypoglycemia 01/08/18 13:00 02/07/18 12:59 Donepezil HCl (Aricept) 10 mg DAILY ORAL 01/09/18 09:00 02/08/18 08:59 01/09/18 09:15 Heparin Sodium (Porcine) (Heparin 5000 units/ml) 5,000 units EVERY 12 HOURS SUBQ 01/08/18 21:00 02/07/18 20:59 01/09/18 09:16 Insulin Aspart (NovoLOG) BEFORE MEALS AND HS SUBQ 01/08/18 16:30 02/07/18 16:29 01/08/18 17:30 Lorazepam (Ativan 2mg/ml 1ml) 0.5 mg Q4H PRN IV For Anxiety 01/08/18 13:00 01/15/18 12:59 Morphine Sulfate (Morphine Sulfate) 1 mg Q4H PRN IVP For Pain 7-01/08/18 13:00 01/15/18 12:59 Nitroglycerin (Ntg) 0.4 mg Q5M X 3 DOSES PRN SL Prn Chest Pain 01/08/18 13:00 02/07/18 12:59 Ondansetron HCl (Zofran) 4 mg Q6H PRN IVP Nausea & Vomiting 01/08/18 13:00 02/07/18 12:59 01/09/18 08:25 Polyethylene Glycol (Miralax) 17 gm HSPRN PRN ORAL Constipation 01/08/18 13:00 02/07/18 12:59 01/08/18 22:38 Potassium Chloride (K-Dur) 40 meq ONCE ORAL 01/09/18 11:00 01/09/18 12:00 01/09/18 10:47 Sitagliptin Phosphate (Januvia) 50 mg DAILY ORAL 01/09/18 09:00 02/08/18 08:59 01/09/18 09:15 Temazepam (Restoril) 15 mg HSPRN PRN ORAL Insomnia 01/08/18 21:00 01/15/18 20:59 Assessment/Plan Problem List: (1) Acute encephalopathy ICD Codes: G93.40 - Encephalopathy, unspecified SNOMED: 33180652, 466277019 (2) Polypharmacy ICD Codes: Z79.899 - Other senior living (current) drug therapy SNOMED: 336532507 (3) Syncope ICD Codes: R55 - Syncope and collapse SNOMED: 063053055 Qualifiers: Qualified Codes: R55 - Syncope and collapse (4) Parkinson's disease ICD Codes: G20 - Parkinson's disease SNOMED: 34164091 (5) Diabetes mellitus ICD Codes: E11.9 - Type 2 diabetes mellitus without complications SNOMED: 28191631 Assessment/Plan telemetry monitoring check echo, doppler of carotid artery sliding scale diabetic diet neuro evaluation pt/ot dvt prophylaxis. Mona Cook MD Jan 09, 2018 11:07
[2018-01-09 12:00] VITALS: BP 141/67
--- NOTE | 2018-01-09 12:21 | General Progress Note ---
Assessment/Plan Problem List: (1) UTI (urinary tract infection) ICD Codes: N39.0 - Urinary tract infection, site not specified SNOMED: 31386734 Qualifiers: Qualified Codes: N39.0 - Urinary tract infection, site not specified (2) Sepsis ICD Codes: A41.9 - Sepsis, unspecified organism SNOMED: 63135308 Qualifiers: Qualified Codes: A41.9 - Sepsis, unspecified organism (3) Syncope ICD Codes: R55 - Syncope and collapse SNOMED: 924682388 Qualifiers: Qualified Codes: R55 - Syncope and collapse (4) Diabetes mellitus ICD Codes: E11.9 - Type 2 diabetes mellitus without complications SNOMED: 98228977 Status: unchanged Assessment/Plan ot pt diet abx cardio neuro f/u cbc bmp am Subjective Constitutional: Reports: weakness Allergies: Coded Allergies: No Known Allergies (Unverified , 01/08/18) All Systems: reviewed and negative except above Subjective calm in bed sl confused Objective Last 24 Hour Vital Signs Date Time Temp Pulse Resp B/P (MAP) Pulse Ox O2 Delivery O2 Flow Rate FiO2 01/09/18 09:00 Room Air 01/09/18 08:00 98.2 65 18 133/56 (81) 97 98.2 01/09/18 08:00 62 01/09/18 07:53 70 20 Room Air 21 01/09/18 04:00 72 01/09/18 04:00 98.2 64 20 127/65 (85) 98 98.2 01/09/18 00:00 75 01/09/18 00:00 98.0 76 22 126/70 (88) 96 98.0 01/08/18 21:00 Room Air 01/08/18 20:00 72 01/08/18 20:00 98.0 87 22 122/72 (89) 97 98.0 01/08/18 16:00 89 01/08/18 16:00 98.0 93 20 139/72 (94) 100 98.0 01/08/18 14:38 Nasal Cannula 2.0 01/08/18 14:03 97.8 84 16 128/74 100 Room Air 97.8 01/08/18 13:23 97.8 84 16 128/74 100 Room Air 97.8 Intake and Output 01/08/18 01/09/18 18:59 06:59 Intake Total 360 ml Balance 360 ml Intake Oral 360 ml # Voids 3 2 Laboratory Tests 01/09/18 07:25: White Blood Count 7.0, Red Blood Count 3.78L, Hemoglobin 11.8L, Hematocrit 33.9L , Mean Corpuscular Volume 90, Mean Corpuscular Hemoglobin 31.2H, Mean Corpuscular Hemoglobin Concent 34.7, Red Cell Distribution Width 12.6, Platelet Count 144L, Mean Platelet Volume 10.9H, Neutrophils (%) (Auto) 64.0, Lymphocytes (%) (Auto) 26.4, Monocytes (%) (Auto) 6.2, Eosinophils (%) (Auto) 2.9, Basophils (%) (Auto) 0.5, Erythrocyte Sedimentation Rate 45H, Prothrombin Time 10.9, Prothromb Time International Ratio 1.0, Activated Partial Thromboplast Time 29, Sodium Level 142, Potassium Level 3.2L, Chloride Level 109H, Carbon Dioxide Level 26, Anion Gap 7, Blood Urea Nitrogen 15, Creatinine 0.8, Estimat Glomerular Filtration Rate , Glucose Level 99, Hemoglobin A1c 6.2H , Calcium Level 8.5, Total Bilirubin 0.8, Aspartate Amino Transf (AST/SGOT) 22, Alanine Aminotransferase (ALT/SGPT) 30, Alkaline Phosphatase 79, Total Protein 6.5, Albumin 2.9L, Globulin 3.6, Albumin/Globulin Ratio 0.8L, Triglycerides Level 84, Cholesterol Level 112, LDL Cholesterol 57, HDL Cholesterol 57, Cholesterol/HDL Ratio 2.0L, Vitamin B12 Level [Pending], Folate [Pending], Thyroid Stimulating Hormone (TSH) 1.887 01/09/18 11:25: Albumin/Globulin Ratio [Pending], Total Protein (PEP) [Pending], Albumin (PEP) [ Pending], Globulin (PEP) [Pending], Beseu-1-Tjfiulbsa [Pending], Alpha-2- Globulins [Pending], Beta Globulins [Pending], Beta Gamma Globulin [Pending], PEP Abnormal Protein Bands [Pending], Protein Electrophoresis Interpret [Pending ], Vitamin D 25-Hydroxy [Pending], 25-Hydroxy Vitamin D2 [Pending], 25-Hydroxy Vitamin D3 [Pending], Rapid Plasma Reagin [Pending] Height (Feet): 5 Height (Inches): 1.00 Weight (Pounds): 130 General Appearance: lethargic EENT: normal ENT inspection Neck: normal alignment Cardiovascular: normal peripheral pulses, normal rate, regular rhythm Respiratory/Chest: chest wall non-tender, lungs clear, normal breath sounds Abdomen: normal bowel sounds, non tender, soft Extremities: normal inspection Edema: no edema noted Arm (L), no edema noted Arm (R), no edema noted Leg (L), no edema noted Leg (R), no edema noted Pedal (L), no edema noted Pedal (R), no edema noted Generalized Neurologic: motor weakness Skin: normal pigmentation, warm/dry Riky Ye DO Jan 09, 2018 12:21
[2018-01-09 16:00] VITALS: BP 123/62
--- NOTE | 2018-01-09 16:00 | Consultation ---
DATE OF CONSULTATION: 01/09/2018 NEUROLOGY CONSULTATION CONSULTING PHYSICIAN: Irvin Trent M.D. REQUESTING PHYSICIAN: Riky Ye D.O. HISTORY: Ms. 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 She was functioning relatively well, but recently her dose of Sinemet was changed from 1 to 1-1/2 and then 2 tablets 3 times a day. Yesterday, she was standing outside the social security office for an appointment when she suddenly felt dizzy, lightheaded, and passed out for a few seconds. Her daughter was with her and prevented her from falling down and hurting herself. She regained consciousness rapidly and was back to her normal self within a few seconds. The paramedics were called in and when they got to her she was significantly hypotensive. She was given a normal saline bolus and felt quite well rapidly. At this point in time, she feels that she is back to her normal self. She denies any weakness on one side or the other, numbness on one side or the other, problems with speech, problems with language, problems with vision, or other neurological symptoms. Of note is that, she did have a similar fainting episode approximately seven months ago. With regards to her memory loss, she has been forgetful for approximately a year. She forgets things told to her. She repeats the same questions and she is not as bright as she used to be. With regards to her movement disorder, she has had abnormal mouth and limb movements for quite some time now. However, there has been no tremor, muscle stiffness, or change in her posture. 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 FAMILY HISTORY: Significant for high blood pressure and diabetes mellitus in other family members. PERSONAL HISTORY: Home: She lives with her daughter. 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 Habits: She denies use of tobacco or illicit drugs. She used to drink alcohol socially in the past. PRESENT MEDICATIONS: At home included aspirin 81 mg qd, atorvastatin 80 mg qd, Sinemet 25/100 two tablets taken tid, Aricept 10 mg qd, hydrochlorothiazide 25 mg qd, Januvia 100 mg qd, and vitamin D3 2000 international units qd. PHYSICAL EXAMINATION: GENERAL: She is a well-developed, well-nourished, but lean lady, lying in bed, in no acute distress. VITAL SIGNS: Pulse 65/minute, blood pressure 133/56 mmHg, respirations 18/minute, and temperature 98.2 degrees Fahrenheit. HEAD: Normocephalic and atraumatic. EENT: Examination benign except for left-sided corneal clouding. NECK: No neck rigidity was observed NEUROLOGICAL EXAMINATION: MENTAL STATUS EXAMINATION: She was awake and alert. She was oriented to self, hospital, and 2018. She did not know the name of the hospital, date or month. She was able to recall 3/3 words immediately, but could only remember 2/3 words in 1 minute and 3 minutes even on the second trial. She was able to remember presidents Trump and Obama, with hints, but could not remember presidents prior to that. Her mathematical skills were impaired. Her visuospatial function was also impaired. It should be noted that her educational level was quite low. SPEECH: She had a mild dysarthria. LANGUAGE: She was able to comprehend and express herself well in [place] as per her daughter, who was interpreting for her. CRANIAL NERVE EXAMINATION: II: The visual suero were intact in the right eye. In the left eye, she had no light perception. III, IV & : The external ocular movements were present. The right pupil was 3 mm and reactive sluggishly to light. V: She had normal facial sensations, and the temporales, masseters, and pterygoids functioned normally. VII: She had normal facial expressions, and no facial asymmetry. VIII: She was able to hear well bilaterally and had no nystagmus. IX: The palate moved symmetrically on pronation. X: She had no hoarseness of voice. XI: The sternocleidomastoids and trapezii functioned normally. XII: The tongue was in the midline without any fasciculations or atrophy. MOTOR SYSTEM: The tone was normal in all four extremities. Examination of muscle mass revealed no focal wasting. Examination of power revealed G 5/5 power in all muscle groups tested. SENSORY EXAMINATION: She had intact sensations to pinprick and light touch. Position sense was normal in the fingers bilaterally, but diminished in the toes bilaterally. REFLEXES: Trace+ and bilaterally symmetrical at the biceps, triceps, brachioradialis, and knees. 0 at both ankles. The plantar responses were flexor bilaterally. STANCE: She had a minimally wide-based, but stable stance. GAIT: She walked with a minimally wide-based, but stable gait. ABNORMAL MOVEMENTS: Orobuccolingual dyskinesia: G 3/4. Limb and trunk dyskinesia: G 2/4. Limb and trunk dystonia: G 2/4. Tremor (4-5 Hz), rigidity, bradykinesia, hypomimia, hypophonia, parkinsonian stance and parkinsonian gait: G 0/4. DIAGNOSTIC IMPRESSION: 1. Ms. Magi Wylie is a 77-year-old, right-handed, lady, who does have a past history of hypertension, diabetes mellitus, dyslipidemia, left eye blindness following cataract surgery, a movement disorder labelled Parkinson disease, and dementia for the last year or so, who on 01/08/2018 while standing outside the social security office suddenly felt dizzy, lightheaded, and then passed out for a few seconds. On being evaluated by the paramedics, she was significantly hypotensive. She was given a bolus of normal saline and improved rapidly. Of note is that, she had a similar fainting episode approximately seven months ago. 2. On neurological examination, at this time, she does have problems with orientation with being oriented only to self and year, problems with recent and remote memory, visuospatial function, and higher cognitive function. She is also mildly dysarthric, has no light perception in the left eye, has decreased position sense in the toes, globally diminished deep tendon reflexes, and a minimally wide-based stance and gait. She also exhibits severe orobuccolingual dyskinesia, limb and trunk dyskinesia, and limb and trunk dystonia. She however is not exhibiting any signs of Parkinson's disease at this point in time. 3. Laboratory data on admission revealed that her WBC count was elevated to 11,000. Her chemistry panel revealed that the BUN was elevated to 23, but the rest of her electrolytes were within normal range. Her TSH was normal at 3.71. Her urinalysis revealed 2+ leukocyte esterase, with 0-2 red blood cells and 5-10 white blood cells per high-power field. 4. The patient's history, neurological examination, and laboratory data are most compatible with a syncopal episode most probably due to dehydration. In addition, the urinary tract infection and exposure to large doses of dopaminergic agents could also have contributed to her syncopal episode. However, a cardiac arrhythmia should be excluded in this patient, who has had recurrent syncopal episodes. 5. At this point in time, the patient is exhibiting no signs of Parkinson's disease. However, she is on large doses of the dopaminergic agents. She is however exhibiting severe dyskinetic and dystonic movements. 6. She does have significant cognitive problems indicative of an underlying dementia. RECOMMENDATIONS: 1. Agree with management thus far. 2. She should be kept well-hydrated especially on hot summer days. 3. Treatment of urinary tract infection. 4. She should be worked up thoroughly for treatable causes of neuropathy, which could be contributing to her syncopal episodes. 5. Her cardiac rhythm should be monitored carefully. 6. At this point in time, I will stop her Sinemet and see if there is in fact an underlying Parkinson's syndrome. At this moment, all we are seeing is dystonic and dyskinetic movements and no signs of Parkinson's disease. If need be we can restart her on a lower dose of Sinemet. 7. The patient will be observed closely and depending on how she fares over the next day or so, further recommendations will be given. Thank you for entrusting me with the care of Ms. Aggarwal. I shall follow her with you. Irvin Trent M.D., M.S.P.H. : PAMELA JOB#: [id number] IRINA
--- NOTE | 2018-01-09 16:02 | Cardiology Report ---
APPROVED REPORT EXAM: Two-dimensional and M-mode echocardiogram with Doppler and color Doppler. INDICATION LV FUNCTION M-Mode DIMENSIONS IVSd1.5 (0.7-1.1cm)Left Atrium (MM)3.6 (1.6-4.0cm) LVDd4.2 (3.5-5.6cm)Aortic Root3.4 (2.0-3.7cm) PWd1.2 (0.7-1.1cm)Aortic Cusp Exc.1.6 (1.5-2.0cm) IVSs1.8 cm LVDs2.4 (2.5-4.0cm) PWs1.9 cm Normal left ventricular chamber size, systolic function and wall motion to extent visualized. Left ventricular ejection fraction estimated to be 60-65 %. No evidence of left ventricular hypertrophy . No evidence of pericardial effusion. All other cardiac chamber sizes are within normal limits. Focal aortic valve sclerosis with adequate cusp excursion. Thickened mitral valve leaflets with normal excursion. Mitral annulus and aortic root calcification. Pulmonic valve not well visualized. Normal tricuspid valve structure. IVC at normal size with physiologic collapse. A color flow and spectral Doppler study was performed and revealed: Mild aortic regurgitation. Trace mitral regurgitation. Mitral diastolic velocities suggest reduced left ventricular relaxation c/w mild LV diastolic dysfunction (Grade I ). Mild to moderate tricuspid regurgitation. Tricuspid systolic velocities suggests peak right ventricular systolic pressure of 52mmHg, consistent with moderate pulmonary hypertension . No Pulmonic regurgitation present.
--- NOTE | 2018-01-09 16:56 | Cardiology Report ---
APPROVED REPORT EKG Measurement Heart [id number] Normal sinus rhythm Normal ECG
--- NOTE | 2018-01-09 19:43 | Cardiology Progress Note ---
Assessment/Plan Assessment/Plan The patient is seen and examined, full consult note will be dictated. Objective Last 24 Hour Vital Signs Date Time Temp Pulse Resp B/P (MAP) Pulse Ox O2 Delivery O2 Flow Rate FiO2 01/09/18 16:00 81 01/09/18 16:00 98.8 65 16 123/62 (82) 97 98.8 01/09/18 12:00 98.2 63 18 141/67 (91) 99 98.2 01/09/18 12:00 63 01/09/18 09:00 Room Air 01/09/18 08:00 98.2 65 18 133/56 (81) 97 98.2 01/09/18 08:00 62 01/09/18 07:53 70 20 Room Air 21 01/09/18 04:00 72 01/09/18 04:00 98.2 64 20 127/65 (85) 98 98.2 01/09/18 00:00 75 01/09/18 00:00 98.0 76 22 126/70 (88) 96 98.0 01/08/18 21:00 Room Air 01/08/18 20:00 72 01/08/18 20:00 98.0 87 22 122/72 (89) 97 98.0 Intake and Output 01/08/18 01/09/18 19:00 07:00 Intake Total 360 ml Balance 360 ml Intake Oral 360 ml # Voids 3 2 Laboratory Tests Test 01/09/18 07:25 01/09/18 11:25 White Blood Count 7.0 K/UL (4.8-10.8) Red Blood Count 3.78 M/UL (4.20-5.40) L Hemoglobin 11.8 G/DL (12.0-16.0) L Hematocrit 33.9 % (37.0-47.0) L Mean Corpuscular Volume 90 FL (80-99) Mean Corpuscular Hemoglobin 31.2 PG (27.0-31.0) H Mean Corpuscular Hemoglobin Concent 34.7 G/DL (32.0-36.0) Red Cell Distribution Width 12.6 % (11.6-14.8) Platelet Count 144 K/UL (150-450) L Mean Platelet Volume 10.9 FL (6.5-10.1) H Neutrophils (%) (Auto) 64.0 % (45.0-75.0) Lymphocytes (%) (Auto) 26.4 % (20.0-45.0) Monocytes (%) (Auto) 6.2 % (1.0-10.0) Eosinophils (%) (Auto) 2.9 % (0.0-3.0) Basophils (%) (Auto) 0.5 % (0.0-2.0) Erythrocyte Sedimentation Rate 45 MM/HR (0-30) H Prothrombin Time 10.9 SEC (9.30-11.50) Prothromb Time International Ratio 1.0 (0.9-1.1) Activated Partial Thromboplast Time 29 SEC (23-33) Sodium Level 142 MMOL/L (136-145) Potassium Level 3.2 MMOL/L (3.5-5.1) L Chloride Level 109 MMOL/L (98-107) H Carbon Dioxide Level 26 MMOL/L (21-32) Anion Gap 7 mmol/L (5-15) Blood Urea Nitrogen 15 mg/dL (7-18) Creatinine 0.8 MG/DL (0.55-1.30) Estimat Glomerular Filtration Rate mL/min (>60) Glucose Level 99 MG/DL (74-106) Hemoglobin A1c 6.2 % (4.3-6.0) H Calcium Level 8.5 MG/DL (8.5-10.1) Total Bilirubin 0.8 MG/DL (0.2-1.0) Aspartate Amino Transf (AST/SGOT) 22 U/L (15-37) Alanine Aminotransferase (ALT/SGPT) 30 U/L (12-78) Alkaline Phosphatase 79 U/L (46-116) Total Protein 6.5 G/DL (6.4-8.2) Albumin 2.9 G/DL (3.4-5.0) L Globulin 3.6 g/dL Albumin/Globulin Ratio 0.8 (1.0-2.7) L Pending Triglycerides Level 84 MG/DL (30-150) Cholesterol Level 112 MG/DL (< 200) LDL Cholesterol 57 mg/dL (<100) HDL Cholesterol 57 MG/DL (40-60) Cholesterol/HDL Ratio 2.0 (3.3-4.4) L Vitamin B12 Level 685 PG/ML (193-986) Folate 13.9 NG/ML (8.6-58.9) Thyroid Stimulating Hormone (TSH) 1.887 uiU/mL (0.358-3.740) Total Protein (PEP) Pending Albumin (PEP) Pending Globulin (PEP) Pending Qxebx-5-Radxkvsob Pending Dswfi-3-Eesxnkeze Pending Beta Globulins Pending Beta Gamma Globulin Pending PEP Abnormal Protein Bands Pending Protein Electrophoresis Interpret Pending Vitamin D 25-Hydroxy Pending 25-Hydroxy Vitamin D2 Pending 25-Hydroxy Vitamin D3 Pending Rapid Plasma Reagin Pending Microbiology Date/Time Source Procedure Growth Status 01/08/18 11:17 Rectum Received Chano Encinas MD Jan 09, 2018 19:43
[2018-01-09 20:00] VITALS: BP 138/62
[2018-01-09] MEDS: Atorvastatin 80mg tab ORAL SCH (20:44)
[2018-01-09] MEDS: Metoprolol Succinate XL 25mg tab ORAL SCH (21:10)
--- NOTE | 2018-01-09 23:00 | Consultation ---
DATE OF CONSULTATION: 01/09/2018 CARDIOLOGY CONSULTATION CONSULTING PHYSICIAN: Chano Neal M.D. REFERRING PHYSICIAN: Riky Ye D.O. REASON FOR CONSULTATION: Management of syncope. HISTORY OF PRESENT ILLNESS: The patient is a very unfortunate 77-year-old lady, who presents to the hospital with a syncopal event. Apparently, this was witnessed while she was walking in a very hot and yulia day. She passes out without sustaining any injury. She had one episode of vomiting following that. She was not capable of performing any activity after that. She was taken by the paramedics and was brought to [facility] Emergency Department. Initially, blood pressure was 143/63 mmHg and pulse of 75 beats per minute in the emergency department. A 12-lead electrocardiogram was significant for sinus rhythm at a rate of [address] and T-wave abnormalities. QT interval was 442 milliseconds. She was admitted to telemetry under the service of Dr. Ye. Cardiology consultation was made at the request of Dr. Ye for evaluation and management of syncope. PAST MEDICAL HISTORY: Diabetes mellitus, hypertension, and history of dementia/Alzheimer's disease. MEDICATIONS: List of medications at home includes aspirin 81 mg p.o. daily, atorvastatin 80 mg p.o. at bedtime, Sinemet 25/100 one tablet 3 times daily, donepezil 10 mg p.o. daily, hydrochlorothiazide 25 mg daily, Januvia 100 mg p.o. daily, and vitamin D3 2000 units p.o. daily. ALLERGIES: No known drug allergies. SOCIAL HISTORY: Denies any tobacco, alcohol, or illicit drug use. FAMILY HISTORY: No premature coronary artery disease or arrhythmogenic in the first-degree relatives. REVIEW OF SYSTEMS: HEENT: Did not have any headache, diplopia, or blurred vision. CONSTITUTIONAL: Has generalized weakness, but no fever, chills, or night sweats. CARDIOVASCULAR: Denies any chest pain, shortness of breath, PND, orthopnea, or leg swelling. No dyspnea on exertion prior to this event. No palpitations reported. LUNGS: Clear. No cough, hemoptysis, or wheezing. GASTROINTESTINAL: Had one episode of vomiting. No diarrhea, constipation, or GI bleed. GENITOURINARY: Denies any hematuria, dysuria, or incontinence. NEUROLOGY: Denies any motor dysfunction, sensory deficit, or altered speech. PHYSICAL EXAMINATION: VITAL SIGNS: Blood pressure at the time of arrival to the hospital was 143/66, respirations 13, pulse of 75, temperature 97.5 degrees Fahrenheit, and O2 saturation 94% on room air. GENERAL: The patient is a very pleasant 77-year-old lady, in no apparent respiratory distress. Alert and oriented x4. HEENT: Atraumatic and normocephalic. Anicteric. Pupils are equal, round, and reactive to light and accommodation. Extraocular muscles intact. NECK: JVP less than 5 cm. No carotid bruits. Carotid upstrokes 2+ bilaterally. CVS: Normal S1, S2. Regular rate and rhythm. No murmurs, gallops, or rubs. PMI is at fourth intercostal space in the midclavicular line. LUNGS: Clear to auscultation bilaterally. ABDOMEN: Soft, nontender, and nondistended. No hepatosplenomegaly. Positive bowel sounds. EXTREMITIES: No evidence of edema, clubbing, or cyanosis. LABORATORY FINDINGS: INR was 1.0. Chemistry showed sodium of 141, potassium is 3.8, chloride 104, bicarbonate 28, BUN 23, creatinine 1.0, and glucose 109. Calcium is 9.3, magnesium 2.2, troponin I is 0.0, proBNP was 219. WBC 11.0, hemoglobin 13.7, hematocrit of 41.1, and platelet count is 160,000. DIAGNOSTIC DATA: Chest x-ray showed no acute cardiopulmonary processes. A 2D echocardiography revealed normal LV systolic function with LVEF approximately 60% to 65%. There was mild aortic regurgitation, grade 1 LV diastolic dysfunction, ysme-dt-rnhayheq tricuspid regurgitation with right ventricular systolic pressure measured at 52 mmHg consistent with moderate pulmonary hypertension. ASSESSMENT AND PLAN: The patient is a very unfortunate 77-year-old female, seen in Cardiology consultation at the request of Dr. Ye. 1. Syncope. This is most likely due to hypovolemia as this is evident on the chemistry. The patient shows prerenal azotemia, elevation of BUN and creatinine ratio above 20, as well as contraction alkalosis with bicarbonate of 28. The patient requires hydration. A 12-lead electrocardiogram does not show any evidence of ischemia. A 2D echocardiography shows normal LV systolic function with LVEF approximately 60%. 2. Moderate pulmonary hypertension. The cause of this is unknown. The possibilities would be obstructive sleep apnea chronically, which is unlikely given the history. The patient has no history of smoking. This moderate pulmonary hypertension is diagnosed by echocardiography. For further delineation of this condition, the right heart catheterization is recommended as an outpatient. 3. History of diabetes mellitus. 4. History of hypertension. I would consider discontinuation of hydrochlorothiazide in the patient with prior syncopal event. I would favor beta-gaston in this patient. 5. History of Parkinson's disease. I would like to thank, Dr. Ye, for allowing me to participate in the care of this patient. Chano Encinas M.D. DR: NOAM JOB#: [id number] CC:
[2018-01-10] VITALS: BP 136/74
[2018-01-10 04:00] VITALS: BP 143/68
[2018-01-10] MEDS: NovoLOG Insulin Flexpen SUBQ SCH ×2 (06:28→11:30)
--- NOTE | 2018-01-10 07:13 | General Progress Note ---
Assessment/Plan Problem List: (1) UTI (urinary tract infection) ICD Codes: N39.0 - Urinary tract infection, site not specified SNOMED: 57806375 Qualifiers: Qualified Codes: N39.0 - Urinary tract infection, site not specified (2) Sepsis ICD Codes: A41.9 - Sepsis, unspecified organism SNOMED: 22855520 Qualifiers: Qualified Codes: A41.9 - Sepsis, unspecified organism (3) Syncope ICD Codes: R55 - Syncope and collapse SNOMED: 737658364 Qualifiers: Qualified Codes: R55 - Syncope and collapse (4) Diabetes mellitus ICD Codes: E11.9 - Type 2 diabetes mellitus without complications SNOMED: 53136515 Status: stable, progressing Assessment/Plan ot pt diet abx cardio neuro f/u cbc bmp am dc plan w hh Subjective Constitutional: Reports: weakness Allergies: Coded Allergies: No Known Allergies (Unverified , 01/08/18) All Systems: reviewed and negative except above Subjective calm in bed sl confused Objective Last 24 Hour Vital Signs Date Time Temp Pulse Resp B/P (MAP) Pulse Ox O2 Delivery O2 Flow Rate FiO2 01/10/18 04:00 54 01/10/18 04:00 97.0 81 20 143/68 (93) 97 97.0 01/10/18 00:00 98.0 59 21 136/74 (94) 97 98.0 01/10/18 00:00 62 01/09/18 21:10 61 138/62 01/09/18 21:00 Room Air 01/09/18 20:00 97.5 61 20 138/62 (87) 98 97.5 01/09/18 20:00 63 01/09/18 18:40 61 20 Room Air 21 01/09/18 16:00 81 01/09/18 16:00 98.8 65 16 123/62 (82) 97 98.8 01/09/18 12:00 98.2 63 18 141/67 (91) 99 98.2 01/09/18 12:00 63 01/09/18 09:00 Room Air 01/09/18 08:00 98.2 65 18 133/56 (81) 97 98.2 01/09/18 08:00 62 01/09/18 07:53 70 20 Room Air 21 Intake and Output 01/09/18 01/10/18 19:00 07:00 Intake Total 720 ml Balance 720 ml Intake Oral 720 ml # Voids 3 4 Laboratory Tests 01/09/18 07:25: White Blood Count 7.0, Red Blood Count 3.78L, Hemoglobin 11.8L, Hematocrit 33.9L , Mean Corpuscular Volume 90, Mean Corpuscular Hemoglobin 31.2H, Mean Corpuscular Hemoglobin Concent 34.7, Red Cell Distribution Width 12.6, Platelet Count 144L, Mean Platelet Volume 10.9H, Neutrophils (%) (Auto) 64.0, Lymphocytes (%) (Auto) 26.4, Monocytes (%) (Auto) 6.2, Eosinophils (%) (Auto) 2.9, Basophils (%) (Auto) 0.5, Erythrocyte Sedimentation Rate 45H, Prothrombin Time 10.9, Prothromb Time International Ratio 1.0, Activated Partial Thromboplast Time 29, Sodium Level 142, Potassium Level 3.2L, Chloride Level 109H, Carbon Dioxide Level 26, Anion Gap 7, Blood Urea Nitrogen 15, Creatinine 0.8, Estimat Glomerular Filtration Rate , Glucose Level 99, Hemoglobin A1c 6.2H , Calcium Level 8.5, Total Bilirubin 0.8, Aspartate Amino Transf (AST/SGOT) 22, Alanine Aminotransferase (ALT/SGPT) 30, Alkaline Phosphatase 79, Total Protein 6.5, Albumin 2.9L, Globulin 3.6, Albumin/Globulin Ratio 0.8L, Triglycerides Level 84, Cholesterol Level 112, LDL Cholesterol 57, HDL Cholesterol 57, Cholesterol/HDL Ratio 2.0L, Vitamin B12 Level 685, Folate 13.9, Thyroid Stimulating Hormone (TSH) 1.887 01/09/18 11:25: Albumin/Globulin Ratio [Pending], Total Protein (PEP) [Pending], Albumin (PEP) [ Pending], Globulin (PEP) [Pending], Xdbmt-8-Bqtteaany [Pending], Alpha-2- Globulins [Pending], Beta Globulins [Pending], Beta Gamma Globulin [Pending], PEP Abnormal Protein Bands [Pending], Protein Electrophoresis Interpret [Pending ], Vitamin D 25-Hydroxy [Pending], 25-Hydroxy Vitamin D2 [Pending], 25-Hydroxy Vitamin D3 [Pending], Rapid Plasma Reagin [Pending] Height (Feet): 5 Height (Inches): 1.00 Weight (Pounds): 130 General Appearance: lethargic EENT: normal ENT inspection Neck: normal alignment Cardiovascular: normal peripheral pulses, normal rate, regular rhythm Respiratory/Chest: chest wall non-tender, lungs clear, normal breath sounds Abdomen: normal bowel sounds, non tender, soft Extremities: normal inspection Edema: no edema noted Arm (L), no edema noted Arm (R), no edema noted Leg (L), no edema noted Leg (R), no edema noted Pedal (L), no edema noted Pedal (R), no edema noted Generalized Neurologic: responsive, motor weakness Skin: normal pigmentation, warm/dry Riky Ye DO Jan 10, 2018 07:13
[2018-01-10 08:00] VITALS: BP 119/65
[2018-01-10 08:14] LABS: BASOPHILS % (AUTO) 0.9 % (0.0-2.0); EOSINOPHILS % (AUTO) 4.9 % (0.0-3.0); HEMATOCRIT 32.8 % (37.0-47.0); HEMOGLOBIN 11.2 G/DL (12.0-16.0); LYMPHOCYTES % (AUTO) 36.5 % (20.0-45.0); MEAN CORPUSCULAR VOLUME 91 FL (80-99); NEUTROPHILS % (AUTO) 48.8 % (45.0-75.0); PLATELET COUNT 129 K/UL (150-450); WHITE BLOOD COUNT 4.8 K/UL (4.8-10.8)
[2018-01-10] MEDS: Metoprolol Succinate XL 25mg tab ORAL SCH (08:25)
[2018-01-10] MEDS: sitaGLIPtin 50mg tab ORAL SCH (08:25)
[2018-01-10] MEDS: Donepezil 10mg tab ORAL SCH (08:25)
[2018-01-10] MEDS: Heparin 5000 units/ml inj SUBQ SCH (08:26)
[2018-01-10 08:51] LABS: ANION GAP 9 mmol/L (5-15); BLOOD UREA NITROGEN 12 mg/dL (7-18); CALCIUM 8.7 MG/DL (8.5-10.1); CARBON DIOXIDE 24 MMOL/L (21-32); CHLORIDE 110 MMOL/L (98-107); CREATININE 0.8 MG/DL (0.55-1.30); POTASSIUM 4.2 MMOL/L (3.5-5.1); SODIUM 143 MMOL/L (136-145)
--- NOTE | 2018-01-10 09:35 | Infectious Diseases Prog Note ---
Assessment/Plan Assessment/Plan Assessment: No Evidof Pneum -CXR: no acute process Afebrile Mild leukocytosis, likely reactive and due to dehydration- resolved Mild pyuria- nO UTI symptoms u/a wbc 5-10, nit neg, leuk +2; ucx p Syncopal episode- likely orthostatic hypotension from dehydration (sun exposure ) + antihypertensive and parkinsonian meds Mild PRASANTH/Azotemia- improving HTN Dementia Probable Parkinson's Plan: -Continue to monitor off abx; ok to discharge from ID stand point -01/08 LEvaquin x1, Cefepime x1 -f/u cx -Monitor CBC/CMP, temperatures Subjective Constitutional: Denies: no symptoms, fever, chills, fatigue, anorexia, drenching sweats, other Allergies: Coded Allergies: No Known Allergies (Unverified , 01/08/18) Objective Vital Signs Last 24 Hour Vital Signs Date Time Temp Pulse Resp B/P (MAP) Pulse Ox O2 Delivery O2 Flow Rate FiO2 01/10/18 09:00 Room Air 01/10/18 08:25 51 119/65 01/10/18 08:00 96.8 53 19 119/65 (83) 97 96.8 01/10/18 08:00 57 01/10/18 04:00 54 01/10/18 04:00 97.0 81 20 143/68 (93) 97 97.0 01/10/18 00:00 98.0 59 21 136/74 (94) 97 98.0 01/10/18 00:00 62 01/09/18 21:10 61 138/62 01/09/18 21:00 Room Air 01/09/18 20:00 97.5 61 20 138/62 (87) 98 97.5 01/09/18 20:00 63 01/09/18 18:40 61 20 Room Air 21 01/09/18 16:00 81 01/09/18 16:00 98.8 65 16 123/62 (82) 97 98.8 01/09/18 12:00 98.2 63 18 141/67 (91) 99 98.2 01/09/18 12:00 63 Height (Feet): 5 Height (Inches): 1.00 Weight (Pounds): 130 HEENT: anicteric Respiratory/Chest: no respiratory distress Cardiovascular: regularly irregular Abdomen: no organomegaly Extremities: no cyanosis Microbiology Date/Time Source Procedure Growth Status 01/08/18 11:17 Nasal Nares MRSA Culture - Final NO METHICILLIN RESISTANT STAPH AUREUS... Complete 01/08/18 11:17 Rectum Received Laboratory Tests Test 01/09/18 11:25 01/10/18 07:00 Total Protein (PEP) Pending Albumin (PEP) Pending Globulin (PEP) Pending Albumin/Globulin Ratio Pending Wvicj-4-Nkrgtkvsj Pending Erosf-1-Asiiqmtmm Pending Beta Globulins Pending Beta Gamma Globulin Pending PEP Abnormal Protein Bands Pending Protein Electrophoresis Interpret Pending Vitamin D 25-Hydroxy Pending 25-Hydroxy Vitamin D2 Pending 25-Hydroxy Vitamin D3 Pending Rapid Plasma Reagin Pending White Blood Count 4.8 K/UL (4.8-10.8) Red Blood Count 3.60 M/UL (4.20-5.40) L Hemoglobin 11.2 G/DL (12.0-16.0) L Hematocrit 32.8 % (37.0-47.0) L Mean Corpuscular Volume 91 FL (80-99) Mean Corpuscular Hemoglobin 31.2 PG (27.0-31.0) H Mean Corpuscular Hemoglobin Concent 34.3 G/DL (32.0-36.0) Red Cell Distribution Width 13.0 % (11.6-14.8) Platelet Count 129 K/UL (150-450) L Mean Platelet Volume 11.9 FL (6.5-10.1) H Neutrophils (%) (Auto) 48.8 % (45.0-75.0) Lymphocytes (%) (Auto) 36.5 % (20.0-45.0) Monocytes (%) (Auto) 9.0 % (1.0-10.0) Eosinophils (%) (Auto) 4.9 % (0.0-3.0) H Basophils (%) (Auto) 0.9 % (0.0-2.0) Sodium Level 143 MMOL/L (136-145) Potassium Level 4.2 MMOL/L (3.5-5.1) Chloride Level 110 MMOL/L (98-107) H Carbon Dioxide Level 24 MMOL/L (21-32) Anion Gap 9 mmol/L (5-15) Blood Urea Nitrogen 12 mg/dL (7-18) Creatinine 0.8 MG/DL (0.55-1.30) Estimat Glomerular Filtration Rate mL/min (>60) Glucose Level 92 MG/DL (74-106) Calcium Level 8.7 MG/DL (8.5-10.1) Pro-B-Type Natriuretic Peptide 1152 pg/mL (0-125) H Current Medications Medications (Trade) Dose Ordered Sig/Jose Alberto Route PRN Reason Start Time Stop Time Status Last Admin Dose Admin Acetaminophen (Tylenol) 650 mg Q4H PRN ORAL fever 01/08/18 13:00 02/07/18 12:59 Al Hydroxide/Mg Hydroxide (Mylanta II) 30 ml Q6H PRN ORAL dyspepsia 01/08/18 13:00 02/07/18 12:59 Albuterol/ Ipratropium (Albuterol/ Ipratropium) 3 ml Q4H PRN HHN Shortness of Breath 01/08/18 13:00 01/13/18 12:59 Atorvastatin Calcium (Lipitor) 80 mg BEDTIME ORAL 01/08/18 21:00 02/07/18 20:59 01/09/18 20:44 Clonidine HCl (Catapres Tab) 0.1 mg Q4H PRN ORAL For High Blood Pressure 01/08/18 13:00 02/07/18 12:59 Dextrose (Dextrose 50%) 25 ml STAT PRN IV Hypoglycemia 01/08/18 13:00 02/07/18 12:59 Dextrose (Dextrose 50%) 50 ml STAT PRN IV Hypoglycemia 01/08/18 13:00 02/07/18 12:59 Donepezil HCl (Aricept) 10 mg DAILY ORAL 01/09/18 09:00 02/08/18 08:59 01/10/18 08:25 Heparin Sodium (Porcine) (Heparin 5000 units/ml) 5,000 units EVERY 12 HOURS SUBQ 01/08/18 21:00 02/07/18 20:59 01/10/18 08:26 Insulin Aspart (NovoLOG) BEFORE MEALS AND HS SUBQ 01/08/18 16:30 02/07/18 16:29 01/09/18 20:47 Lorazepam (Ativan 2mg/ml 1ml) 0.5 mg Q4H PRN IV For Anxiety 01/08/18 13:00 01/15/18 12:59 Metoprolol Succinate (Toprol XL) 25 mg DAILY ORAL 01/09/18 20:00 02/08/18 19:59 01/09/18 21:10 Nitroglycerin (Ntg) 0.4 mg Q5M X 3 DOSES PRN SL Prn Chest Pain 01/08/18 13:00 02/07/18 12:59 Ondansetron HCl (Zofran) 4 mg Q6H PRN IVP Nausea & Vomiting 01/08/18 13:00 02/07/18 12:59 01/09/18 08:25 Polyethylene Glycol (Miralax) 17 gm HSPRN PRN ORAL Constipation 01/08/18 13:00 02/07/18 12:59 01/08/18 22:38 Sitagliptin Phosphate (Januvia) 50 mg DAILY ORAL 01/09/18 09:00 02/08/18 08:59 01/10/18 08:25 Temazepam (Restoril) 15 mg HSPRN PRN ORAL Insomnia 01/08/18 21:00 01/15/18 20:59 Lowell Hope MD Jan 10, 2018 09:35
--- NOTE | 2018-01-10 11:02 | Pulmonology Progress Note ---
Assessment/Plan Problems: (1) Acute encephalopathy (2) Polypharmacy (3) Syncope (4) Parkinson's disease (5) Diabetes mellitus Assessment/Plan improving no new events sliding scale diabetic diet pt/ot dc planning Subjective ROS Limited/Unobtainable: No Constitutional: Reports: no symptoms HEENT: Repors: no symptoms Respiratory: Reports: no symptoms Allergies: Coded Allergies: No Known Allergies (Unverified , 01/08/18) Objective Last 24 Hour Vital Signs Date Time Temp Pulse Resp B/P (MAP) Pulse Ox O2 Delivery O2 Flow Rate FiO2 01/10/18 09:00 Room Air 01/10/18 08:25 51 119/65 01/10/18 08:00 96.8 53 19 119/65 (83) 97 96.8 01/10/18 08:00 57 01/10/18 04:00 54 01/10/18 04:00 97.0 81 20 143/68 (93) 97 97.0 01/10/18 00:00 98.0 59 21 136/74 (94) 97 98.0 01/10/18 00:00 62 01/09/18 21:10 61 138/62 01/09/18 21:00 Room Air 01/09/18 20:00 97.5 61 20 138/62 (87) 98 97.5 01/09/18 20:00 63 01/09/18 18:40 61 20 Room Air 21 01/09/18 16:00 81 01/09/18 16:00 98.8 65 16 123/62 (82) 97 98.8 01/09/18 12:00 98.2 63 18 141/67 (91) 99 98.2 01/09/18 12:00 63 Intake and Output 01/09/18 01/10/18 19:00 07:00 Intake Total 720 ml Balance 720 ml Intake Oral 720 ml # Voids 3 4 General Appearance: WD/WN HEENT: normocephalic Respiratory/Chest: chest wall non-tender, lungs clear Breasts: no masses Cardiovascular: normal peripheral pulses Abdomen: normal bowel sounds, soft, non tender Extremities: no clubbing Skin: no rash Microbiology Date/Time Source Procedure Growth Status 01/08/18 10:33 Blood Blood Culture - Preliminary NO GROWTH AFTER 24 HOURS Resulted 01/08/18 10:15 Blood Blood Culture - Preliminary NO GROWTH AFTER 24 HOURS Resulted 01/08/18 11:17 Nasal Nares MRSA Culture - Final NO METHICILLIN RESISTANT STAPH AUREUS... Complete 01/08/18 11:42 Rectum - Final NO CARBAPENEM-RESISTANT ENTEROBACTERI... Complete 01/08/18 11:17 Rectum VRE Culture - Final NO VANCOMYCIN RESISTANT ENTEROCOCCUS ... Complete Laboratory Tests 01/09/18 11:25: Total Protein (PEP) [Pending], Albumin (PEP) [Pending], Globulin (PEP) [Pending] , Albumin/Globulin Ratio [Pending], Agbob-5-Bquklnhjt [Pending], Alpha-2- Globulins [Pending], Beta Globulins [Pending], Beta Gamma Globulin [Pending], PEP Abnormal Protein Bands [Pending], Protein Electrophoresis Interpret [Pending ], Vitamin D 25-Hydroxy [Pending], 25-Hydroxy Vitamin D2 [Pending], 25-Hydroxy Vitamin D3 [Pending], Rapid Plasma Reagin [Pending] 01/10/18 07:00: White Blood Count 4.8, Red Blood Count 3.60L, Hemoglobin 11.2L, Hematocrit 32.8L , Mean Corpuscular Volume 91, Mean Corpuscular Hemoglobin 31.2H, Mean Corpuscular Hemoglobin Concent 34.3, Red Cell Distribution Width 13.0, Platelet Count 129L, Mean Platelet Volume 11.9H, Neutrophils (%) (Auto) 48.8, Lymphocytes (%) (Auto) 36.5, Monocytes (%) (Auto) 9.0, Eosinophils (%) (Auto) 4.9H, Basophils (%) (Auto) 0.9, Sodium Level 143, Potassium Level 4.2, Chloride Level 110H, Carbon Dioxide Level 24, Anion Gap 9, Blood Urea Nitrogen 12, Creatinine 0.8, Estimat Glomerular Filtration Rate , Glucose Level 92, Calcium Level 8.7, Pro-B-Type Natriuretic Peptide 1152H Current Medications Medications (Trade) Dose Ordered Sig/Jose Alberto Route PRN Reason Start Time Stop Time Status Last Admin Dose Admin Acetaminophen (Tylenol) 650 mg Q4H PRN ORAL fever 01/08/18 13:00 02/07/18 12:59 Al Hydroxide/Mg Hydroxide (Mylanta II) 30 ml Q6H PRN ORAL dyspepsia 01/08/18 13:00 02/07/18 12:59 Albuterol/ Ipratropium (Albuterol/ Ipratropium) 3 ml Q4H PRN HHN Shortness of Breath 01/08/18 13:00 01/13/18 12:59 Atorvastatin Calcium (Lipitor) 80 mg BEDTIME ORAL 01/08/18 21:00 02/07/18 20:59 01/09/18 20:44 Clonidine HCl (Catapres Tab) 0.1 mg Q4H PRN ORAL For High Blood Pressure 01/08/18 13:00 02/07/18 12:59 Dextrose (Dextrose 50%) 25 ml STAT PRN IV Hypoglycemia 01/08/18 13:00 02/07/18 12:59 Dextrose (Dextrose 50%) 50 ml STAT PRN IV Hypoglycemia 01/08/18 13:00 02/07/18 12:59 Donepezil HCl (Aricept) 10 mg DAILY ORAL 01/09/18 09:00 02/08/18 08:59 01/10/18 08:25 Heparin Sodium (Porcine) (Heparin 5000 units/ml) 5,000 units EVERY 12 HOURS SUBQ 01/08/18 21:00 02/07/18 20:59 01/10/18 08:26 Insulin Aspart (NovoLOG) BEFORE MEALS AND HS SUBQ 01/08/18 16:30 02/07/18 16:29 01/09/18 20:47 Lorazepam (Ativan 2mg/ml 1ml) 0.5 mg Q4H PRN IV For Anxiety 01/08/18 13:00 01/15/18 12:59 Metoprolol Succinate (Toprol XL) 25 mg DAILY ORAL 01/09/18 20:00 02/08/18 19:59 01/09/18 21:10 Nitroglycerin (Ntg) 0.4 mg Q5M X 3 DOSES PRN SL Prn Chest Pain 01/08/18 13:00 02/07/18 12:59 Ondansetron HCl (Zofran) 4 mg Q6H PRN IVP Nausea & Vomiting 01/08/18 13:00 02/07/18 12:59 01/09/18 08:25 Polyethylene Glycol (Miralax) 17 gm HSPRN PRN ORAL Constipation 01/08/18 13:00 02/07/18 12:59 01/08/18 22:38 Sitagliptin Phosphate (Januvia) 50 mg DAILY ORAL 01/09/18 09:00 02/08/18 08:59 01/10/18 08:25 Temazepam (Restoril) 15 mg HSPRN PRN ORAL Insomnia 01/08/18 21:00 01/15/18 20:59 Mona Cook MD Jan 10, 2018 11:02
--- NOTE | 2018-01-10 11:31 | General Progress Note ---
Progress Note Progress Note [id number] full consult dictated Misti Brunner MD Jan 10, 2018 11:31
[2018-01-10 12:00] VITALS: BP 133/66
--- NOTE | 2018-01-10 15:12 | Neurology Progress Note ---
Interim History Interim History Interim History Ms. Aggarwal feels better today. She has had no dizziness, lightheadedness, near-syncopal or syncopal episodes. She continues to have dyskinetic and dystonic movements, but they are better today. She denies any new neurologic symptoms. She continues to be cognitively impoverished. She has been walking with no problems. She is eager to go home. Review of Systems Neuro Review of Systems Benign. Objective Physical Exam Last Vital Signs Date Time Temp Pulse Resp B/P (MAP) Pulse Ox O2 Delivery O2 Flow Rate FiO2 01/10/18 12:00 53 01/10/18 12:00 96.6 19 133/66 (88) 97 96.6 01/10/18 09:00 Room Air 01/09/18 18:40 21 01/08/18 14:38 2.0 Laboratory Tests Test 01/10/18 07:00 White Blood Count 4.8 K/UL (4.8-10.8) Red Blood Count 3.60 M/UL (4.20-5.40) L Hemoglobin 11.2 G/DL (12.0-16.0) L Hematocrit 32.8 % (37.0-47.0) L Mean Corpuscular Volume 91 FL (80-99) Mean Corpuscular Hemoglobin 31.2 PG (27.0-31.0) H Mean Corpuscular Hemoglobin Concent 34.3 G/DL (32.0-36.0) Red Cell Distribution Width 13.0 % (11.6-14.8) Platelet Count 129 K/UL (150-450) L Mean Platelet Volume 11.9 FL (6.5-10.1) H Neutrophils (%) (Auto) 48.8 % (45.0-75.0) Lymphocytes (%) (Auto) 36.5 % (20.0-45.0) Monocytes (%) (Auto) 9.0 % (1.0-10.0) Eosinophils (%) (Auto) 4.9 % (0.0-3.0) H Basophils (%) (Auto) 0.9 % (0.0-2.0) Sodium Level 143 MMOL/L (136-145) Potassium Level 4.2 MMOL/L (3.5-5.1) Chloride Level 110 MMOL/L (98-107) H Carbon Dioxide Level 24 MMOL/L (21-32) Anion Gap 9 mmol/L (5-15) Blood Urea Nitrogen 12 mg/dL (7-18) Creatinine 0.8 MG/DL (0.55-1.30) Estimat Glomerular Filtration Rate mL/min (>60) Glucose Level 92 MG/DL (74-106) Calcium Level 8.7 MG/DL (8.5-10.1) Pro-B-Type Natriuretic Peptide 1152 pg/mL (0-125) H Neurologic Exam Objective PHYSICAL EXAMINATION: GENERAL: She is a well-developed, well-nourished, but lean lady, lying in bed, in no acute distress. HEAD: Normocephalic and atraumatic. EENT: Examination benign except for left-sided corneal clouding. NECK: No neck rigidity was observed NEUROLOGICAL EXAMINATION: MENTAL STATUS EXAMINATION: She was awake and alert. She was oriented to self, hospital, and 2018. She did not know the name of the hospital, date or month. She was able to recall 3/3 words immediately, but could only remember 2/3 words in 1 minute and 3 minutes even on the second trial. She was able to remember presidents Trump and Obama, with hints, but could not remember presidents prior to that. Her mathematical skills were impaired. Her visuospatial function was also impaired. It should be noted that her educational level was quite low. SPEECH: She had a mild dysarthria. LANGUAGE: She was able to comprehend and express herself well in [place] as per her family members, who were interpreting for her. CRANIAL NERVE EXAMINATION: II: The visual suero were intact in the right eye. In the left eye, she had no light perception. III, IV & : The external ocular movements were present. The right pupil was 3 mm and reactive sluggishly to light. V: She had normal facial sensations, and the temporales, masseters, and pterygoids functioned normally. VII: She had normal facial expressions, and no facial asymmetry. VIII: She was able to hear well bilaterally and had no nystagmus. IX: The palate moved symmetrically on pronation. X: She had no hoarseness of voice. XI: The sternocleidomastoids and trapezii functioned normally. XII: The tongue was in the midline without any fasciculations or atrophy. MOTOR SYSTEM: The tone was normal in all four extremities. Examination of muscle mass revealed no focal wasting. Examination of power revealed G 5/5 power in all muscle groups tested. SENSORY EXAMINATION: She had intact sensations to pinprick and light touch. Position sense was normal in the fingers bilaterally, but diminished in the toes bilaterally. REFLEXES: Trace+ and bilaterally symmetrical at the biceps, triceps, brachioradialis, and knees. 0 at both ankles. The plantar responses were flexor bilaterally. STANCE: She had a minimally wide-based, but stable stance. GAIT: She walked with a minimally wide-based, but stable gait. ABNORMAL MOVEMENTS: Orobuccolingual dyskinesia: G 2/4. Limb and trunk dyskinesia: G 1/4. Limb and trunk dystonia: G 1/4. Tremor (4-5 Hz), rigidity, bradykinesia, hypomimia, hypophonia, parkinsonian stance and parkinsonian gait: G 0/4. Impression/Recommendations Diagnostic Impression 1. Ms. Magi Wylie is a 77-year-old, right-handed, lady, who does have a past history of hypertension, diabetes mellitus, dyslipidemia, left eye blindness following cataract surgery, a movement disorder labelled Parkinson disease, and dementia for the last year or so, who on 01/08/2018 while standing outside the social security office suddenly felt dizzy, lightheaded, and then passed out for a few seconds. On being evaluated by the paramedics, she was significantly hypotensive. She was given a bolus of normal saline and improved rapidly. Of note is that, she had a similar fainting episode approximately seven months ago. 2. She feels better today. She has had no dizziness, lightheadedness, near- syncopal or syncopal episodes. She continues to have dyskinetic and dystonic movements, but they are better today. She denies any new neurologic symptoms. She continues to be cognitively impoverished. She has been walking with no problems. She is eager to go home. 3. On neurological examination, at this time, she does have problems with orientation with being oriented only to self and year, problems with recent and remote memory, visuospatial function, and higher cognitive function. She is also mildly dysarthric, has no light perception in the left eye, has decreased position sense in the toes, globally diminished deep tendon reflexes, and a minimally wide-based stance and gait. She also exhibits significant orobuccolingual dyskinesias, limb and trunk dyskinesias, and limb and trunk dystonia. She however is not exhibiting any signs of Parkinson's disease at this point in time even off Sinemet! 4. Laboratory data on admission revealed that her WBC count was elevated to 11, 000. Her chemistry panel revealed that the BUN was elevated to 23, but the rest of her electrolytes were within normal range. Her TSH was normal at 3.71. Her urinalysis revealed 2+ leukocyte esterase, with 0-2 red blood cells and 5- 10 white blood cells per high-power field. 5. Further laboratory tests have revealed a normal B12, Folate, TSH but elevated Hemoglobin A 1 C at 6.2%. 6. The patient's history, neurological examination, and laboratory data are most compatible with a syncopal episode most probably due to dehydration. In addition, the urinary tract infection and exposure to large doses of dopaminergic agents could also have contributed to her syncopal episode. However, a cardiac arrhythmia should be excluded in this patient, who has had recurrent syncopal episodes. 7. At this point in time, the patient is exhibiting no signs of Parkinson's disease even off Sinemet for > 24 hours. 8. Her dyskinetic and dystonic movements are better but not gone. 9. She does have significant cognitive problems indicative of an underlying dementia. Recommendations 1. Continue present management. 2. Keep well-hydrated especially on hot summer days. 3. Treatment of urinary tract infection. 4. Watch off Sinemet as she in not manifesting any signs of a Parkinsonian syndrome. 5. Follow up with her neurologist in the future. Shalonda Trent M.D., M.S.P.SHALONDA COLE Jan 10, 2018 15:12
--- NOTE | 2018-01-10 17:30 | Consultation ---
DATE OF CONSULTATION: 01/10/2018 NEPHROLOGY CONSULTATION CONSULTING PHYSICIAN: Misti Brunner M.D. REFERRING PHYSICIAN: Riky Ye D.O. REASON FOR CONSULTATION: Acute renal failure and hypokalemia. HISTORY OF PRESENT ILLNESS: The patient is a 77-year-old, female with past medical history significant for diabetes, hypertension, and dementia, who was brought into [facility] after she had an episode of fall and syncope. Apparently, the patient was walking outside with weakness while she had an episode of fall. After that, she was not able to perform her activity. She was brought into the ER. In the ER, the patient found to have blood pressure of 143/63. Her pulse was 79. She was found to have abnormal electrolytes. Consequently, she was admitted with diagnosis of syncopal episode. I was called for management of renal disease and electrolyte imbalance. PAST MEDICAL HISTORY: 1. Hypertension. 2. Diabetes. 3. Diabetic neuropathy. 4. Dementia. 5. Alzheimer disease. HOME MEDICATIONS: 1. Aspirin 81 mg p.o. daily. 2. Atorvastatin 80 mg p.o. daily. 3. Sinemet 25/100 mg daily. 4. Donepezil 10 mg p.o. daily. 5. Hydrochlorothiazide 25 mg daily. 6. Januvia 100 mg daily. 7. Vitamin D 2000 p.o. daily. ALLERGIES: No known drug allergies. SOCIAL HISTORY: She lives at home. There is no history of tobacco, alcohol or drug use. FAMILY HISTORY: Noncontributory. REVIEW OF SYSTEMS: GENERAL: She complained of generalized weakness. Denied any fever, chills, or night sweats. HEAD AND NECK: Denies any dysphagia, odynophagia, blurry vision, headache, or neck stiffness. PULMONARY: No cough or sputum or hemoptysis. CARDIOVASCULAR: Denies any chest pain or palpitations. GASTROINTESTINAL: Complained of one episode of vomiting post episodes of syncope, otherwise, negative. GENITOURINARY: Denies any dysuria, frequency, or hematuria. MUSCULOSKELETAL: Denies any weakness or numbness. PHYSICAL EXAMINATION: VITAL SIGNS: The patient had blood pressure of 140/60, pulse rate of 75, and respiratory rate of 18. HEAD AND NECK: No JVP. No LAD. No thyromegaly. Extraocular movements intact. Pupils are reactive to light and accommodation. LUNGS: Clear to auscultation. CARDIAC: Regular rate and rhythm. S1 and S2. No murmur. No rub. ABDOMEN: Soft, nontender, and nondistended. EXTREMITIES: No edema. No clubbing. No cyanosis. LABORATORY AND DIAGNOSTIC DATA: Upon admission, the patient has sodium of 142, potassium 3.2, chloride 109, bicarbonate 26, BUN 15, and creatinine 0.4. A1c of 6.2. Calcium of 8.5. AST of 22, ALT of 30, and alkaline phosphatase of 71. BNP was 1152. Total protein of 6.2, albumin of 2.9, triglycerides of 84, cholesterol of 112, and HDL of 57. TSH was 1.82. UA revealed specific gravity of 1.015, leukocyte esterase 2+, wbc's 5 to 10, and rbc's 0 to 2. CBC revealed WBC count of 7, hemoglobin of 11.8, hematocrit 33.9, and platelet count of 144. ASSESSMENT: 1. Hypokalemia. 2. Dehydration and prerenal azotemia. 3. Rule out diabetic nephropathy. 4. Possible urinary tract infection. PLAN: The patient to obtain a random urine protein-creatinine ratio to calculate the proteinuria. Check the urine sodium and creatinine to calculate fractional excretion of sodium. Check the urine potassium for evaluation of renal versus GI loss. Continue hydration. Hold hydrochlorothiazide. Replace electrolytes as needed. Again, I would like to thank Dr. Riky Ye, allowing me to participate in the care of this patient. Misti Brunner M.D. DR: ABRAHAM JOB#: [id number] CC:
--- NOTE | 2018-01-13 06:51 | Discharge Summary ---
Discharge Summary Discharge Summary _ DATE OF ADMISSION: 01/08/2018 DATE OF DISCHARGE: 01/10/2018 REASON FOR ADMISSION: 77 years old female with past medical history significant for hypertension, diabetes, Alzheimer dementia, recently diagnosed Parkinson disease ( started on Sinemet and dose increased), presented after syncopal episode. Paramedics found patient to be hypotensive as well. After bolus of 250 mL of normal saline blood pressure improved. Blood sugar was stable in the field. EKG revealed no acute ischemic changes Patient by herself was unable to provide much of the information due to advanced dementia. Patient took antihypertensive medication earlier that morning. Upon evaluation in emergency department vital signs were stable Blood pressure stabilized. Laboratory workup revealed mild leukocytosis, stable hemoglobin and hematocrit. Urinalysis with evidence of pyuria, positive for leukocyte esterase and few bacteria. Lactic acid 3.2. Troponin negative, pro BNP 219 ,stable electrolytes. BUN 23 and creatinine 1.0. EKG revealed normal sinus rhythm, no acute ischemic changes. Chest x-ray revealed no acute cardiopulmonary pathology. Patient admitted for further management with diagnoses of syncope, possible sepsis, possible urinary tract infection , acute encephalopathy ,Parkinson disease, diabetes mellitus CONSULTANTS: panelboard tank pumper Dr. Encinas neurologist Dr. Trent pulmonary Dr. Cook ID specialist Dr. Locke tool machine setup operator Dr [facility] COURSE: Patient admitted to telemetry floor. Patient started on gentle IV hydration and antibiotics. Neurologist closely followed patient. According to neurologist, patient 's neurological examination and laboratory data were compatible with syncopal episode likely due to dehydration. In addition exposure to large dose of dopaminergic agent along with possible urinary tract infection contributed to the syncopal episode as well. Patient was kept off Sinemet , and her dyskinetic and dystonic movements were better but not gone completely. Patient also had significant cognitive problems indicative of underlying dementia. Neurologist recommended keep patient well hydrated, continue present management ,treat urinary tract infection and watch patient off Sinemet , as the patient did not manifest any signs of Parkinson syndrome. B12 ,folate and TSH were all within normal limits. Senior Media Buyer closely followed. Echocardiogram revealed preserved ejection fraction of 60-65% and right ventricular systolic pressure of 52 consistent with a moderate pulmonary hypertension. According to panelboard tank pumper syncope was most likely due to hypovolemia . 12-lead EKG did not show any evidence of ischemia. Telemetry did not show evidence of arrhythmias. Cause of moderate pulmonary hypertension was unknown . The possibility could include obstructive sleep apnea . Patient had no history of smoking. Moderate pulmonary hypertension was diagnosed by echocardiogram. For further delineation of this condition the right heart catheterization was recommended as outpatient. Blood pressure was managed with low-dose of beta gaston and remained stable. Hydrochlorothiazide discontinued in the patient with a prior syncopal episode. Statin continued. DVT prophylaxis provided. Blood sugar was managed with Januvia and sliding scale insulin as needed , hemoglobin A1c -6.2 ,at goal. Infectious disease doctor closely followed. Initially patient presented with mild leukocytosis, likely reactive secondary to dehydration. Urine culture was not done, however patient had no urinary complaints. Blood culture were negative. Leukocytosis resolved next day , patient was afebrile, no signs of infection. Infectious disease doctor recommended to keep patient off antibiotics. Publicity Manager closely followed . Patient was on gentle IV hydration,m renal parameters and electrolytes were closely monitored. Electrolytes were replaced as needed , and nephrotoxins were avoided . Prior to discharge BUN 12 and creatinine 0.8. Serum protein electrophoresis within normal range/no abnormal protein bands. Supplemental oxygen provided as needed to keep pulse oximetry above 92%. Pulmonary toilet provided as needed. Supportive care provided Bowel regimen instituted. Patient was working with physical and occupational therapists. Patient was stable for discharge home with home health services to follow FINAL DIAGNOSES: Acute encephalopathy ( likely due to syncopal episode) Syncopal episode Dehydration Polypharmacy Pulmonary hypertension Hypertension Diabetes mellitus Hypokalemia DISCHARGE MEDICATIONS: See Medication Reconciliation list. DISCHARGE INSTRUCTIONS: Patient was discharged home with home health services. Follow up with primary care provider in one week I have been assigned to dictate discharge summary for this account. I was not involved in the patient's management. Nydia Nuñez NP Jan 13, 2018 06:51
== END 2018-01-10 16:05 | disposition home health service (06) | DRG 640 ==
LOC: EDBD 10:23 → EMR 10:54 → 2E 11:05 → EDBEDREQ 11:20
DX: E86.0 Dehydration (principal); G93.40 Encephalopathy, unspecified; N39.0 Urinary tract infection, site not specified; N17.9 Acute kidney failure, unspecified; E86.1 Hypovolemia; E87.6 Hypokalemia; I95.9 Hypotension, unspecified; G30.9 Alzheimer's disease, unspecified; F02.80 Dementia in other diseases classified elsewhere, unspecified severity, without behavioral disturbance, psychotic disturbance, mood disturbance, and anxiety; I10 Essential (primary) hypertension; G20 Parkinson's disease; R55 Syncope and collapse; Z79.4 Long term (current) use of insulin; I27.20 Pulmonary hypertension, unspecified; H54.62 Unqualified visual loss, left eye, normal vision right eye; Z79.899 Other long term (current) drug therapy; E11.40 Type 2 diabetes mellitus with diabetic neuropathy, unspecified; I35.1 Nonrheumatic aortic (valve) insufficiency; I36.1 Nonrheumatic tricuspid (valve) insufficiency
CPT/HCPCS: 36415; 71045; 80048; 80053; 80061; 81003; 82306; 82550; 82607; 82746; 82962; 83036; 83605; 83735; 83880; 84165; 84443; 84484; 85025; 85610; 85651; 85730; 86592; 87040; 87081; 93005; 93306; 93880; 94664; 99285; J1815; J2405; J8499